=== PATIENT | female | born 1950 | race Caucasian/White ===

== ENCOUNTER → 2021-02-09 | Outpatient (CLI) | payer MEDICARE | END | disposition home or self-care (01) | LOC: OIH 14:09 | PROVIDERS: ATTEND Internal Medicine | DX: I08.3 Combined rheumatic disorders of mitral, aortic and tricuspid valves (principal); E78.5 Hyperlipidemia, unspecified; E11.9 Type 2 diabetes mellitus without complications | CPT/HCPCS: 93306; 93356 ==

== ENCOUNTER 2024-03-01 10:12 | Inpatient (IN) | payer MEDICARE ==
[~2024-03-01] VITALS: Ht 175.3 cm; Wt 70.9 kg
--- NOTE | 2024-03-01 10:41 | NUR ---
PT PLACED IN ED ROOM 02 WITH 02 @ 2 LTS
--- NOTE | 2024-03-01 11:14 | ERN ---
ED Note History of Present Illness Stated Complaint: FLU LIKE SYMPTOMS Chief Complaint: Shortness of Breath Time Seen by MD: 11:00 Dictation: This 73-year-old patient with a history of hypertension, hyperlipidemia and diabetes presents in the emergency department with several days of body aches and cough, worsening shortness of breath, diarrhea and a chest pain exacerbated by deep breath and cough which is constant and substernal. She is not producing a lot of sputum. She visited her PCP Dr. srini Lee on Monday who prescribed a Z-Rafael inhaler and prednisone which seemed to make her feel better. In a more subacute timeframe she has been experiencing about 22 days of severe nocturnal heartburn and did see the PCP who gave her a course of easy omeprazole which did not relieve her symptoms. She switch to Tums and did get relief of the symptoms and once those symptoms were gone she began experiencing the cough. Yesterday she noted some ankle edema which improved with a elevation overnight. Her chest pain today is sharp in nature and exacerbated by deep breath and cough. It is nonradiating. She is not known to have any history of heart disease and has never been a smoker. She lives at home with family Allergies: Coded Allergies: No Known Drug Intolerances (Unverified Allergy, Intermediate, 03/01/24) Past Medical History Past Medical History: Diabetes-Type I, High Cholesterol, Hypertension, Renal Disese Surgical History: Other Surgical History Other: LEFT SHOULDER, RIGHT TOE AMPUATIONS Social History: Negative RN Note Reviewed/Agreed w/PFSH: Yes Review of System Dictation All pertinent systems reviewed, negative except as documented in the HPI The ROS is obtained from patient GENERAL/CONSTITUTIONAL: Negative except as documented in HPI. ENT: Negative except as documented in HPI. CARDIOVASCULAR: Negative except as documented in HPI. RESPIRATORY: Negative except as documented in HPI. GASTROINTESTINAL: Negative except as documented in HPI. GENITOURINARY: Negative except as documented in HPI. MUSCULOSKELETAL: Negative except as documented in HPI. SKIN: Negative except as documented in HPI. NEUROLOGIC: Negative except as documented in HPI. Initial Vital Sign VS Vital Signs Date Time Temp Pulse Resp B/P (MAP) Pulse Ox O2 Delivery O2 Flow Rate FiO2 03/01/24 10:41 98.6 82 20 105/50 90 Room Air 0 03/01/24 11:20 28 Physical Exam Dictation VITAL SIGNS: note is made of triage vital signs CONSTITUTIONAL: This is an uncomfortable, ill-appearing patient who is awake, alert, and appropriately interactive. HEAD: Normocephalic, Atraumatic. EYES: Periorbital areas with no swelling, redness, or edema. Lids and lashes are normal. Conjunctival injection is absent. Sclera anicteric. Pupils equal, round, reactive to light. ENT: No nasal discharge noted. Posterior pharynx is without exudate, redness, swelling, masses, or evidence of obstruction. Uvula midline. Mucous membranes moist. NECK: Trachea midline, no masses palpated, and no cervical lymphadenopathy. No swelling. Supple, full range of motion without nuchal rigidity. No vertebral point tenderness. No meningismus. CHEST/AXILLA: Normal chest wall appearance and motion. No tenderness. No crepitus. CV: Normal rate, regular rhythm. No murmur. No edema. RESPIRATORY: Mild tachypnea is noted. Patient has decreased airflow and crack les heard at both bases as well as wheezing worse on the left than the right. Mild increased work of breathing ABDOMEN: Inspection normal. No distention is appreciated. Bowel sounds are normal. No mass or organomegaly is appreciated. There is no tenderness. No rebound. No rigidity. No voluntary or involuntary guarding. BACK: Inspection is normal. No midline tenderness is appreciated. The patient appears comfortable when moving. : No CVA tenderness or bladder tenderness. SKIN: Warm, dry, with normal turgor. Capillary refill less than 3 seconds. Normal color.No rash. No cellulitis or abscess. No evidence of acute injury. Stasis changes of the lower extremities MS/Extremity: There is no calf tenderness. Baseline range of motion is noted in all 4 extremities. There are no deformities. NEURO: Awake and alert, lucid. Facies symmetric and speech is clear. Motor strength 5/5 in all extremities. Sensory grossly intact. PSYCH: Patient is appropriately attentive and cooperative without evidence of hallucination. Results (Laboratory/Radiology) Laboratory/Radiology Laboratory Tests Test 03/01/24 09:52 03/01/24 10:48 03/01/24 11:49 White Blood Count 8.2 K/uL (4.8-10.8) Red Blood Count 3.43 MIL/uL (4.00-5.50) L Hemoglobin 10.4 g/dL (12.0-16.0) L Hematocrit 32.6 % (36-48) L Mean Corpuscular Volume 95.0 fL (79-99) Mean Corpuscular Hemoglobin 30.3 pg (27.0-33.0) Mean Corpuscular Hemoglobin Concent 31.9 g/dL (32.0-36.0) L Red Cell Distribution Width 14.8 % (11.0-15.5) Platelet Count 212 K/uL (130-400) Mean Platelet Volume 12.1 fL (7.5-10.5) H Immature Granulocyte % (Auto) 0.4 % (0-1) Neutrophils (%) (Auto) 82.1 % (40.0-77.0) H Lymphocytes (%) (Auto) 9.5 % (21.0-51.0) L Monocytes (%) (Auto) 7.6 % (3.0-13.0) Eosinophils (%) (Auto) 0.2 % (0.0-8.0) Basophils (%) (Auto) 0.2 % (0.0-5.0) Neutrophils # (Auto) 6.7 K/uL (1.8-7.7) Lymphocytes # (Auto) 0.8 K/uL (1.0-4.8) L Monocytes # (Auto) 0.6 K/uL (0.1-1.0) Eosinophils # (Auto) 0.02 K/uL (0.00-0.70) Basophils # (Auto) 0.02 K/uL (0.00-0.20) Absolute Immature Granulocyte (auto 0.03 K/uL (0-1) Nucleated Red Blood Cells 0.0 % (0.0-0.19) White Cell Morphology Comment See comments Sodium Level 139 mmol/L (136-145) Potassium Level 5.1 mmol/L (3.5-5.1) Chloride Level 105 mmol/L (101-111) Carbon Dioxide Level 22 mmol/L (21-32) Blood Urea Nitrogen 54 mg/dL (7-18) H Creatinine 2.1 mg/dL (0.5-1.0) H Glomerular Filtration Rate Calc 24 mL/min (>90) Random Glucose 270 mg/dL (70-105) H Lactic Acid Level 2.2 mmol/L (0.8-2.5) Total Calcium 8.0 mg/dL (8.5-10.1) L Magnesium Level 3.60 mg/dL (1.80-2.40) H Total Bilirubin 0.3 mg/dL (0.2-1.0) Direct Bilirubin 0.1 mg/dL (0.0-0.3) Aspartate Amino Transf (AST/SGOT) 282 U/L (10-37) H Alanine Aminotransferase (ALT/SGPT) 430 U/L (12-78) H Alkaline Phosphatase 127 U/L (50-136) Total Creatine Kinase 142 U/L (21-232) B-Type Natriuretic Peptide 2430 pg/mL (0-100) H Total Protein 6.7 g/dL (6.0-8.3) Albumin 3.0 g/dL (3.5-5.0) L Thyroid Stimulating Hormone (TSH) 1.26 uIU/mL (0.36-3.74) Influenza Type A Antigen Negative For Type A Influenza Type B Antigen Negative For Type B SARS-CoV-2 Antigen (Rapid) PRESUMPTIVE NEGATIVE Procalcitonin 0.14 ng/mL (0.05-0.5) EKG Comment: Time reviewed: 11:00 a.m. EKG number; 1 Rate and rhythm: Sinus rhythm at 80 [place]:normal Morphology: Possible old anterior wall myocardial infarction AR interval: normal QT interval: normal ST/Twaves: normal Impression: normal sinus rhythm without STEMI or ectopy Comparison EKG: none EKG INTERPRETATION by Dr. Tea Mancera ED Course ED Course Orders Procedure Category Date Status Time Vital Signs Per CPOE 03/01/24 Transmitted Routine 10:44 B-Type Natriuretic LAB 03/01/24 Complete Peptide 10:44 Chest 1vw RAD 03/01/24 Resulted 10:44 12 Lead Ekg Tracing- EKG 03/01/24 Complete Technical 10:44 Oxygen By Nc/Pulse Ox CPOE 03/01/24 Transmitted 10:44 Maintain Iv CPOE 03/01/24 Transmitted 10:44 Iv Insertion CPOE 03/01/24 Transmitted 10:44 Cardiac Monitoring CPOE 03/01/24 Transmitted 10:44 Pulse Oximetry With CPOE 03/01/24 Transmitted Vs And Prn 10:44 Cbc With Differential LAB 03/01/24 Complete 10:44 Activity: Br W/Brp CPOE 03/01/24 Transmitted With Assist 10:44 Urinalysis Profile LAB 03/01/24 Logged 10:44 Troponin Poc Order LAB 03/01/24 Complete Only 10:44 Bedside Troponin-I LAB.ER 03/01/24 In Process (Poc) 10:44 Influenza Type A & B, LAB 03/01/24 Complete Rapid 10:44 Covid19 (Sars Antigen LAB 03/01/24 Complete Rapid) 10:44 Blood Cult MADALYN 03/01/24 In Process 11:36 Lactic Acid LAB 03/01/24 Complete 11:36 Magnesium LAB 03/01/24 Complete 11:36 Hepatic Function Panel LAB 03/01/24 Complete 11:36 Ipratropium/Albuterol PHA 03/01/24 Complete Neb (Duoneb) 12:00 Methylprednisolone PHA 03/01/24 Complete Succ 125mg (Solu-Medr 12:00 Ceftriaxone 2gm Vial PHA 03/01/24 Complete (Rocephin 2gm Inj) 12:00 0.9%Nacl 1000ml (Ns PHA 03/01/24 In Process 1000ml) 12:00 Basic Metabolic Panel LAB 03/01/24 Complete 11:36 Creatine Kinase, Total LAB 03/01/24 Complete 11:36 Vital Signs(Adult CPOE 03/01/24 Transmitted Hospitalist) 12:24 Oxygen By Nc/Pulse Ox CPOE 03/01/24 Transmitted 12:24 Famotidine 20mg Tab PHA 03/01/24 In Process (Pepcid 20mg Tab) 21:00 Diphenhydramine Hcl PHA 03/01/24 In Process (Benadryl Cap) 12:30 Diphenhydramine Hcl PHA 03/01/24 In Process (Benadryl Inj) 12:30 Acetaminophen 325 Tab PHA 03/01/24 In Process (Tylenol 325mg Tab 12:30 Acetaminophen 325 Tab PHA 03/01/24 In Process (Tylenol 325mg Tab 12:30 Ondansetron 4mg Inj PHA 03/01/24 In Process (Zofran 4mg Inj) 12:30 Mag/Alum/Simeth 30ml PHA 03/01/24 In Process (Maalox Plus 30ml) 12:30 Lactulose 20 Gm/30 Ml PHA 03/01/24 In Process Udcup (Constulose 12:30 Nitroglycerin 0.4mg PHA 03/01/24 In Process Sl Tab (Nitrostat) 12:30 Guaifenesin-Dm PHA 03/01/24 In Process 200/20mg 10ml 12:30 Ipratropium/Albuterol PHA 03/01/24 In Process Neb (Duoneb) 14:00 Pulse Ox(Continuous) RT 03/01/24 Transmitted 12:24 Famotidine 20mg Vial PHA 03/01/24 Complete (Pepcid 20mg Vial) 21:00 Procalcitonin LAB 03/01/24 Complete 12:24 Guaifenesin Sug-Vitaliy PHA 03/01/24 In Process 100 Mg/5ml (Robituss 12:30 Docusate Sodium 100 PHA 03/01/24 In Process Mg Cap (Colace 100mg 12:30 Polyethylene Glycol PHA 03/01/24 In Process 3350 (Miralax 3350 1 12:30 Lidocaine Hcl 2% PHA 03/01/24 In Process Viscous (Lidocaine Hcl 12:30 Natural Tears 15ml PHA 03/01/24 In Process (Artificial Tears) 12:30 Benzocaine/Menth/Cetylpyrd PHA 03/01/24 In Process Cl (Cepacol S 12:30 Admit Orders ADM 03/01/24 Transmitted 12:24 Telemetry Monitoring CPOE 03/01/24 Transmitted 12:24 Activity: Ad Marianna CPOE 03/01/24 Transmitted 12:24 Heart Healthy Diet DIET 03/01/24 Transmitted Lunch Urinalysis Profile LAB 03/01/24 Logged 12:24 Erythrocyte LAB 03/01/24 In Process Sedimentation Rate 12:24 RSV LAB 03/01/24 Logged 12:24 Respiratory Cult MADALYN 03/01/24 Logged W/Gram Stain 12:24 Echo 2-D Complete ECHO 03/01/24 Logged 12:24 Initiate YUSUF 03/01/24 In Process Hyperglycemia Protoco 12:24 Insulin Lispro 100 PHA 03/01/24 In Process Unit/Ml 3ml (Humalog 16:30 Ct Chest W/O Contrast CT 03/01/24 Resulted 12:31 D-Dimer LAB 03/01/24 In Process 12:31 Methylprednisolone PHA 03/01/24 In Process Succ 40mg (Solu-Medro 13:00 Azithromycin 500mg+Ns PHA 03/01/24 In Process 250ml (Azithromyci 13:00 Arterial Blood Gas RT 03/01/24 Transmitted 12:31 Furosemide 40mg Vial PHA 03/01/24 In Process (Lasix 40mg Vial) 13:00 Ceftriaxone 1g Vial PHA 03/02/24 In Process (Rocephine 1g Inj) 13:00 Thyroid Stimulating LAB 03/01/24 Complete Hormone 09:52 Current Medications Medications (Trade) Dose Ordered Sig/Arely Route PRN Reason Start Time Stop Time Status Last Admin Dose Admin Albuterol (DUOneb) 1 udvial ONCE ONCE IH 03/01/24 12:00 03/01/24 12:01 DC 03/01/24 12:57 Ceftriaxone Sodium (Rocephin 2gm Inj) 2 gm ONCE ONCE IVPB 03/01/24 12:00 03/01/24 12:01 DC 03/01/24 11:51 Methylprednisolone Sodium Succinate (Solu-medROL 125MG) 125 mg ONCE ONCE IVP 03/01/24 12:00 03/01/24 12:01 DC 03/01/24 11:51 Sodium Chloride 1,000 ml @ 125 mls/hr ONCE ONCE IV 03/01/24 12:00 03/01/24 19:59 03/01/24 11:51 Vital Signs Date Time Temp Pulse Resp B/P (MAP) Pulse Ox O2 Delivery O2 Flow Rate FiO2 03/01/24 12:58 74 20 03/01/24 12:33 98.2 74 16 146/84 98 Room Air* 0 21 03/01/24 11:20 98.1 78 15 138/61 90 Nasal Cannula* 2 28 03/01/24 10:41 98.6 82 20 105/50 90 Room Air 0 Medical Decision Making MDM INITIAL IMPRESSION Initial history and physical concerning for pneumonia, viral syndrome, heart failure, Contributing medical problems: No report of underlying cardiac or pulmonary disease I have reviewed the triage nursing notes and vital signs. The patient is afebrile but has a low O2 sat at triage with minimal improvement on oxygen Initial plan: Screening for cardiopulmonary etiology of dyspnea including infectious etiology DATA REVIEW I have reviewed additional NN, repeat VS, and monitoring where indicated. The patient continues to sat around 93% on 2-1/2 L of oxygen. [place] diagnostic results: White count is 8.2, there was mild anemia. BUN is 54 and creatinine is 2.1. There was low calcium, high magnesium and elevated t ransaminase. The patient's BNP is very elevated. Lactic acid is mildly elevated at 2.2 Other independent historian: none Review of external data: There is no old renal function under this medical record number. A previous cardiac echo showed normal LV function in 2020 ED COURSE Interventions: The patient received oxygen, DuoNeb and was started on antibiotics. After the chest x-ray and BNP were reviewed patient was admitted and Lasix was started. Reassessment: The patient is hemodynamically stable DISPOSITION Final diagnostic impression: Pneumonia possibly precipitating new onset heart failure versus primary heart failure complicated by pneumonia I discussed my findings, clinical impression and treatment recommendations with the patient. I have reviewed the social factors contributing to the patient's presentation and disposition planning. My final plan for disposition was made based upon clinical findings, response to treatment and discussion with the patient regarding management options. At noon I discussed the case with the nurse practitioner on duty for [facility] services to arrange admission. Hospitalization is indicated due to current hypoxemia and significant risk of short term progression, complication, morbidity or mortality related to the current diagnosis The patient will be admitted for further management of hypoxemic respiratory failure with evidence of heart failure rule out pneumonia The family/patient has been advised regarding the reason for admission Questions were invited and answered in layman's terms. This dictation was prepared using medical voice recognition software. Occasional voice recognition errors may occur. When identified, these errors have been corrected. While every attempt is made to correct errors during dictation, errors may still exist. DX & DISP Disposition: Inpatient Decision to Admit Date: Mar 01, 2024 Departure Impression: Primary Impression: New onset of congestive heart failure Additional Impressions: Suspected pneumonia, Hypocalcemia, Renal insufficiency Condition: Stable Referrals: CHYEENNE LEE MD (PCP) TEA MANCERA MD Mar 01, 2024 11:14
--- NOTE | 2024-03-01 11:20 | NUR ---
PATIENT BEDDED TO ROOM 17
[2024-03-01 11:28] LABS: COVID19 (SARS ANTIGEN RAPID) PRESUMPTIVE NEGATIVE (NEGATIVE); INFLUENZA TYPE A Negative For Type A (NEGATIVE); INFLUENZA TYPE B Negative For Type B (NEGATIVE)
[2024-03-01] MEDS: Solu-medROL 125MG VIAL IVP ONE (11:51)
[2024-03-01] MEDS: CEFTRIAXONE 2GM VIAL IVPB ONE (11:51)
[2024-03-01] MEDS: 0.9%NACL 1000ML 1,000 ML IV ONE (11:51)
[2024-03-01 11:53] LABS: BASOPHILS # (AUTO) 0.02 K/uL (0.00-0.20); BASOPHILS % (AUTO) 0.2 % (0.0-5.0); EOSINOPHILS # (AUTO) 0.02 K/uL (0.00-0.70); EOSINOPHILS % (AUTO) 0.2 % (0.0-8.0); HEMATOCRIT 32.6 % (36-48); IMMATURE GRANULOCYTE ABSOLUTE 0.03 K/uL (0-1); LYMPHOCYTES # (AUTO) 0.8 K/uL (1.0-4.8); LYMPHOCYTES % (AUTO) 9.5 % (21.0-51.0); MEAN CORPUSCULAR HEMOGLOBIN 30.3 pg (27.0-33.0); MEAN CORPUSCULAR HGB CONC 31.9 g/dL (32.0-36.0); MONOCYTES # (AUTO) 0.6 K/uL (0.1-1.0); MONOCYTES % (AUTO) 7.6 % (3.0-13.0); NEUTROPHILS # (AUTO) 6.7 K/uL (1.8-7.7); NEUTROPHILS % (AUTO) 82.1 % (40.0-77.0); PLATELET COUNT (AUTO) 212 K/uL (130-400); RED BLOOD CELL COUNT(AUTO) 3.43 MIL/uL (4.00-5.50); RED CELL DISTRIBUTION WIDTH 14.8 % (11.0-15.5); WHITE BLOOD COUNT (AUTO) 8.2 K/uL (4.8-10.8)
--- NOTE | 2024-03-01 11:59 | HMCIMG ---
Exam Type: CHEST 1VW Clinical Information: CHEST PAIN Comparison: None Findings: There is prominence of the pulmonary vascular markings consistent with pulmonary venous congestion. . There is central bilateral perihilar edema consistent with congestive heart failure. The heart is enlarged in size. The bony and soft tissue structures of the chest are unremarkable. Impression: Congestive heart failure with perihilar edema as noted.
--- NOTE | 2024-03-01 12:00 | EKG ---
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
[2024-03-01 12:28] LABS: B-TYPE NATRIURETIC PEPTIDE 2430 pg/mL (0-100)
[2024-03-01] MEDS ORDERED: LIDOCAINE HCL 2% VISCOUS 30 ML, MAG/ALUM/SIMETH 30ML 30 ML, DICYCLOMINE HCL 20 MG PO PRN (12:30)
[2024-03-01] MEDS ORDERED: DiphenhydrAMINE HCL 50 MG/ML VIAL IV PRN (12:30)
[2024-03-01] MEDS ORDERED: DiphenhydrAMINE HCL 25 MG CAPSULE PO PRN (12:30)
[2024-03-01] MEDS ORDERED: ARTIFICAL TEARS SOL 15 ML OP PRN (12:30)
[2024-03-01] MEDS ORDERED: guaiFENesin-DM 200/20MG 10ML PO PRN (12:30)
[2024-03-01] MEDS ORDERED: doCUSate SODIUM 100 MG CAP PO PRN (12:30)
[2024-03-01] MEDS ORDERED: NITROGLYCERIN 0.4 MG SL TAB SL PRN (12:30)
[2024-03-01] MEDS ORDERED: MAG/ALUM/SIMETH 30 ML UDCUP PO PRN (12:30)
[2024-03-01] MEDS: IpraTROPium/alBUTERol SULFATE 3 ML SOLUTION IH ONE (12:57)
[2024-03-01 12:58] VITALS: PULSE 74; RESP 20
[2024-03-01] MEDS: Solu-medROL 40MG VIAL IVP SCH (13:00)
--- NOTE | 2024-03-01 13:13 | HMCIMG ---
CT NONCONTRAST CHEST Comparison Study: none History: pneumonia Technique: Helical CT of the chest without IV contrast at 5 mm collimation. Coronal and sagittal reformations also done. CT Dose Index (CTDI): 2.38 mGy Dose Length Product (DLP): 94.8 total mGy-cm Findings: The airway is intact. The trachea and major bronchi are unremarkable. There are bilateral moderate pleural effusions with airspace disease of the lower lobes consistent with bilateral basal pneumonia, superimposed upon pulmonary congestive vascular changes. Follow-up is advised. There is no pneumothorax. There is no evidence of pneumomediastinum. The nonenhanced exam of the arturo and mediastinum is unremarkable. No evidence of hilar enlargement is seen. The aorta shows no aneurysmal dilatation or significant atheromatous calcification. No significant brachiocephalic vascular abnormalities are seen. The heart is unremarkable. It is not enlarged. No significant coronary arterial calcifications are seen. There is no pericardial effusion. The rib cage appears unremarkable. The soft tissues of the chest wall are unremarkable. The dorsal spine shows no significant abnormalities. IMPRESSION: There are bilateral moderate pleural effusions with airspace disease of the lower lobes consistent with bilateral basal pneumonia, superimposed upon pulmonary congestive vascular changes. Follow-up is advised. This study was performed using dose reduction techniques to include automated exposure control and/or adjustment of the mA and/or kV according to patient size.
[2024-03-01 13:27] LABS: BILIRUBIN,DIRECT 0.1 mg/dL (0.0-0.3); BILIRUBIN,TOTAL 0.3 mg/dL (0.2-1.0); CREATININE 2.1 mg/dL (0.5-1.0); MAGNESIUM 3.6 mg/dL (1.80-2.40); POTASSIUM 5.1 mmol/L (3.5-5.1); THYROID STIMULATING HORMONE 1.26 uIU/mL (0.36-3.74); TOTAL PROTEIN, SERUM 6.7 g/dL (6.0-8.3)
[2024-03-01 14:10] VITALS: PULSE 74; RESP 20
[2024-03-01 14:22] LABS: ABG BASE EXCESS -6.3 mmol/L (-2.0-3.0); ABG HCO3 17.4 mmol/L (21.0-28.0); ABG OXYGEN SATURATION 90.6 % (94.0-98.0); ABG PCO2 30 mmHg (32-45); ABG PH 7.378 (7.350-7.450); DEVICE COMMENT JESSE RN LR; PO2, ARTERIAL BG 59.2 mmHg (83.0-108.0); VENT MODE, BG 2L NC (ROOM AIR)
[2024-03-01] MEDS: AZITHROMYCIN 500MG+NS 250ML 250 ML IVPB SCH (14:27)
[2024-03-01] MEDS: furoSEMIDE 40MG VIAL IV SCH (14:27)
[2024-03-01] MEDS: IpraTROPium/alBUTERol SULFATE 3 ML SOLUTION IH SCH (14:36)
[2024-03-01] MEDS: INSULIN LISpro 100 UNIT/ML 3ML SQ SCH (16:30)
[2024-03-01 17:04] LABS: ADD UA MICROSCOPIC YES; APPEARANCE,URINE CLEAR (CLEAR); BILIRUBIN,URINE NEGATIVE (NEGATIVE); COLOR,URINE COLORLESS (YELLOW); GLUCOSE, URINE (UA) >=1000 mg/dL (NEGATIVE); KETONES,URINE NEGATIVE (NEGATIVE); LEUKOCYTE ESTERASE ,URINE NEGATIVE Leu/uL (NEGATIVE); NITRATE,URINE NEGATIVE (NEGATIVE); OCCULT BLOOD,URINE NEGATIVE (NEGATIVE); PROTEIN,URINE NEGATIVE (NEGATIVE); UROBILINOGEN,URINE 0.2 mg/dL (0.2-1.0)
[2024-03-01 17:06] LABS: MUCUS,URINE RARE LPF (None Seen); RBC,URINE 0-1 /HPF (0-1); SQUAMOUS EPITHELIAL CELL,UR RARE /HPF (0-2); WBC,URINE 0-1 /HPF (0-1)
[2024-03-01 19:14] VITALS: PULSE 83; RESP 19
[2024-03-01] MEDS: SODIUM CHLORIDE 3% FOR INHALATION 4 ML/AMP VIAL.NEB IH ONE ×2 (19:14→23:43)
[2024-03-01 19:17] VITALS: PULSE 83; RESP 19; O2SAT 94
[2024-03-01] MEDS: FAMOTIDINE 20MG TAB PO SCH (20:46)
[2024-03-01] MEDS ORDERED: FAMOTIDINE 20MG VIAL IV SCH (21:00)
--- NOTE | 2024-03-01 21:00 | NUR ---
BLOOD SUGAR 302 PT REFUSED INSULIN SCHEDULED DOSE TOOK HER OWN FROM HOME 5.1 UNIT OF INS REGULAR WILL CONT TO MONITOR
[2024-03-01 23:43] VITALS: PULSE 78; RESP 19
[2024-03-02] VITALS (22 sets, daily range): BP systolic 122–152; BP diastolic 56–96; PULSE 76–89; RESP 14–21; TEMP 97.9–99; O2SAT 93–98
--- NOTE | 2024-03-02 00:09 | HP ---
[facility] HISTORY & PHYSICAL Date Patient Seen: Mar 02, 2024 Time of Visit: 00:09 Supervising Physician: Dr. Nick Walton Primary Care Physician: Outpatient Specialists: [facility] last seen in 2021 Inpatient Consults: [facility] PROBLEM LIST: Acute hypoxemic respiratory failure, POA New onset congestive heart failure, POA Community acquired pneumonia, POA Hypocalcemia, POA Hypomagnesemia Renal insufficiency, POA GFR 24 (no prior GFR available to compare baseline) Anemia of chronic disease Hypoalbuminemia Elevated D-dimer, PE was ruled out via CTA chest Chronic problem list: Hypertension, hyperlipidemia, diabetes mellitus type 2 HPI: Ms. Pretty is a 73-year-old female with a history of hypertension, hyperlipidemia and diabetes who presented to the emergency department with roberto ral days of body aches and cough, worsening shortness of breath, diarrhea and a chest pain exacerbated by deep breath and cough which is constant and substernal. She is not producing a lot of sputum. She visited her PCP Dr. srini Quick on Monday who prescribed a Z-Pa,k inhaler and prednisone which seemed to make her feel better. She also reported experiencing about 22 days of severe nocturnal heartburn and did see the PCP who gave her a course of easy omeprazole which did not relieve her symptoms. She switch to Tums and did get relief of the symptoms and once those symptoms were gone she began experiencing the cough. Yesterday she noted some ankle edema which improved with a elevation overnight. Her chest pain today was reported to be sharp in nature and exacerbated by deep breath and cough, nonradiating. She has never been a smoker. Patient reports that in 2021 her PCP thought he heard a murmur and sent her to [facility]. She reports that [facility] reported everything was fine and has not gone to see a central melt specialist since 2021. In ED the patient's saturations were around 93% on 2-1/2 L of oxygen. White count is 8.2, there was mild anemia. BUN is 54 and creatinine is 2.1. GFR 24. There was low calcium, high magnesium and elevated transaminase. The patient's BNP is 2430. Lactic acid is mildly elevated at 2.2. A previous cardiac echo showed normal LV function in 2020 In ED the patient received oxygen, DuoNeb and was started on antibiotics. After the chest x-ray and BNP were reviewed patient was admitted and Lasix was started. ED physician requested patient be admitted with the diagnosis of new onset of congestive heart failure, suspected pneumonia, hypocalcemia, and renal insufficiency. Patient was admitted under BI team. I went to assess the patient at bedside. Patient breathing was even, unlabored, on 2.5 L of oxygen. I spent extensive time explaining to patient's labs, diagnostics, and plan of care. The patient had multiple questions which were addressed by me. Education done on fluid overload, pleural effusions, and pn eumonia was done by me. The patient verbalized understanding and is in agreement with the plan. Plan and assessment are listed below. PAST MEDICAL HX: see above PAST SURGICAL HX: Left shoulder surgery Right toe amputation SOCIAL HISTORY: No tobacco, ETOH, or illicit drug use Coded Allergies: No Known Drug Intolerances (Unverified Allergy, Intermediate, 03/01/24) REVIEW OF SYSTEMS: 12 point ROS reviewed with patient. Pertinent positives mentioned above. Otherwise negative. PHYSICAL EXAM: GENERAL: Alert, awake oriented x 3 HEENT: EOMI, Sclera non icteric, moist mucosa NECK: Supple, no JVD, trachea midline LUNGS: Breathing was even and unlabored. Upper lobes crackles, lower lobes diminished bilaterally. No wheezes. HEART: Regular rate and rhythm. Normal S1 and S2, without murmurs ABD: Abdomen soft, nontender. Bowel sounds present EXT: No clubbing cyanosis or +1 edema NEURO: Alert and oriented x3, follows commands, no neuro deficits noted. Vital Signs (last 8hr) Date Time Temp Pulse Resp B/P (MAP) Pulse Ox O2 Delivery O2 Flow Rate FiO2 03/01/24 23:43 78 19 03/01/24 19:42 99.0 87 20 145/72 95 Nasal Cannula* 2 28 03/01/24 19:17 83 19 N/Cannula Low lpm 2.0 28 03/01/24 19:14 83 19 03/01/24 19:06 98.1 80 20 139/34 90 Nasal Cannula* 2 28 03/01/24 17:24 98.1 91 20 145/60 90 Nasal Cannula* 2 28 LABS: Hematology Labs: Test 03/01/24 11:49 03/01/24 09:52 Range/Units Erythrocyte Sedimentation Rate 34 H 0-30 MM/HR White Blood Count 8.2 4.8-10.8 K/uL Red Blood Count 3.43 L 4.00-5.50 MIL/uL Hemoglobin 10.4 L 12.0-16.0 g/dL Hematocrit 32.6 L 36-48 % Mean Corpuscular Volume 95.0 79-99 fL Mean Corpuscular Hemoglobin 30.3 27.0-33.0 pg Mean Corpuscular Hemoglobin Concent 31.9 L 32.0-36.0 g/dL Red Cell Distribution Width 14.8 11.0-15.5 % Platelet Count 212 130-400 K/uL Mean Platelet Volume 12.1 H 7.5-10.5 fL Immature Granulocyte % (Auto) 0.4 0-1 % Neutrophils (%) (Auto) 82.1 H 40.0-77.0 % Lymphocytes (%) (Auto) 9.5 L 21.0-51.0 % Monocytes (%) (Auto) 7.6 3.0-13.0 % Eosinophils (%) (Auto) 0.2 0.0-8.0 % Basophils (%) (Auto) 0.2 0.0-5.0 % Neutrophils # (Auto) 6.7 1.8-7.7 K/uL Lymphocytes # (Auto) 0.8 L 1.0-4.8 K/uL Monocytes # (Auto) 0.6 0.1-1.0 K/uL Eosinophils # (Auto) 0.02 0.00-0.70 K/uL Basophils # (Auto) 0.02 0.00-0.20 K/uL Absolute Immature Granulocyte (auto 0.03 0-1 K/uL Nucleated Red Blood Cells 0.0 0.0-0.19 % White Cell Morphology Comment See comments Chemistry Labs: Test 03/01/24 16:34 03/01/24 11:49 03/01/24 09:52 Range/Units Lactic Acid Level 1.8 0.8-2.5 mmol/L Procalcitonin 0.14 0.05-0.5 ng/mL Sodium Level 139 136-145 mmol/L Potassium Level 5.1 3.5-5.1 mmol/L Chloride Level 105 101-111 mmol/L Carbon Dioxide Level 22 21-32 mmol/L Blood Urea Nitrogen 54 H 7-18 mg/dL Creatinine 2.1 H 0.5-1.0 mg/dL Glomerular Filtration Rate Calc 24 >90 mL/min Random Glucose 270 H 70-105 mg/dL Total Calcium 8.0 L 8.5-10.1 mg/dL Magnesium Level 3.60 H 1.80-2.40 mg/dL Total Bilirubin 0.3 0.2-1.0 mg/dL Direct Bilirubin 0.1 0.0-0.3 mg/dL Aspartate Amino Transf (AST/SGOT) 282 H 10-37 U/L Alanine Aminotransferase (ALT/SGPT) 430 H 12-78 U/L Alkaline Phosphatase 127 50-136 U/L Total Creatine Kinase 142 21-232 U/L B-Type Natriuretic Peptide 2430 H 0-100 pg/mL Total Protein 6.7 6.0-8.3 g/dL Albumin 3.0 L 3.5-5.0 g/dL Thyroid Stimulating Hormone (TSH) 1.26 0.36-3.74 uIU/mL Coagulation Labs: Test 03/01/24 11:49 Range/Units D-Dimer Quantitative (PE/DVT) 1650 *H 0-500 ng/mL DIAGNOSTICS / RADIOLOGY RESULTS: [ ] PLAN Admit to medical floor with telemetry monitoring. Monitor respiratory status closely. Continue oxygen therapy, titrate to keep SpO2 equal to greater than 92%. Continue nebulizer treatments. RT to provide IS and education on use. Robitussin DM as needed for cough. Continue Solu-Medrol. Continue antibiotic therapy: Rocephin IV and Zithromax IV. Consult Cardiology in a.m. Trend troponins and EKGs. Fluid restriction a 1200 mL. Strict I&Os. Daily weights. Echo in a.m. heart clinic to read. [id number] mg p.o. daily. Atorvastatin 40 mg p.o. daily. Lasix 40 mg IV b.i.d. P.r.n. medications for: Pain, nausea, vomiting, constipation, hypertension Blood pressure checks every 4 hours and as needed. Reconcile home medications once available. Monitor renal and liver function. Monitor electrolytes and treat accordingly. A.m. labs: CBC, BNP, Mag, phos, TSH, A1c, troponin, GI and DVT prophylaxis. NEURO: Minimize central acting medications as possible. Maintain fall precautions, adequate lighting during the day PULMONARY: Supplemental 02 as needed. Maintain aspiration precautions at all times CARDIOVASCULAR: Follow hemodynamics. Vital signs per facility protocol GI & NUTRITION: Continue with nutritional support. Continue stool softeners and laxatives as needed. KIDNEYS & ELECTROLYTES: Strict monitoring of intake, output and overall fluid balance. Avoid nephrotoxic medications to the extent possible. Medications to be dosed according to renal function. Monitor electrolytes and replace as needed ENDOCRINE: Maintain blood glucose between 100-180 at all times. Hypoglycemia protocol in place INFECTIOUS DISEASE: Trend temperature, WBC and procalcitonin level Follow cultures, deescalate antibiotics as soon as possible. Panculture if new onset fever ONCOLOGY/HEMATOLOGY/COAGULATION: Monitor for s/s of bleeding Monitor hemoglobin, coagulation studies as needed SKIN: Pressure ulcer prevention per facility protocol Specialty mattress ORTHO/REHAB: Continue PT/OT Prophylaxis: Continue GI and DVT prophylaxis Code Status: Full Resuscitation Disposition: ISAIAS PRINCE Mar 02, 2024 00:09
[2024-03-02] MEDS: SODIUM CHLORIDE 3% FOR INHALATION 4 ML/AMP VIAL.NEB IH ONE (02:13)
[2024-03-02 07:36] LABS: HEMOGLOBIN A1C 8.1 % (4.0-6.0)
[2024-03-02 07:51] LABS: HEMATOCRIT 32.8 % (36-48); MEAN CORPUSCULAR HEMOGLOBIN 30.4 pg (27.0-33.0); MEAN CORPUSCULAR HGB CONC 33.2 g/dL (32.0-36.0); MEAN CORPUSCULAR VOLUME 91.4 fL (79-99); RED BLOOD CELL COUNT(AUTO) 3.59 MIL/uL (4.00-5.50); RED CELL DISTRIBUTION WIDTH 14.7 % (11.0-15.5); WHITE BLOOD COUNT (AUTO) 10.4 K/uL (4.8-10.8)
[2024-03-02 07:54] LABS: BILIRUBIN,TOTAL 0.2 mg/dL (0.2-1.0)
[2024-03-02 07:55] LABS: CREATININE 2.2 mg/dL (0.5-1.0); MAGNESIUM 3.4 mg/dL (1.80-2.40); PHOSPHORUS 5.7 mg/dL (2.5-4.9); POTASSIUM 4.8 mmol/L (3.5-5.1); TOTAL PROTEIN, SERUM 6.6 g/dL (6.0-8.3)
--- NOTE | 2024-03-02 08:01 | NUR ---
BLOOD SUGAR 187 PATIENT REFUSED INSULIN. 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 CURRENTLY RUNNING AT 1.7.
[2024-03-02] MEDS ORDERED: ASPI-1197 PO (08:23)
[2024-03-02] MEDS ORDERED: CARV12.511 PO (08:23)
[2024-03-02] MEDS ORDERED: INSU100I15 SQ (08:23)
[2024-03-02] MEDS ORDERED: MULT-1250 PO (08:23)
[2024-03-02] MEDS ORDERED: CHOL200074 PO (08:23)
[2024-03-02] MEDS ORDERED: VITA-395 PO (08:23)
[2024-03-02] MEDS ORDERED: [UNRECOGNIZED DRUG - OTHER] PO (08:23)
[2024-03-02] MEDS ORDERED: EMPA10TA PO (08:23)
[2024-03-02] MEDS ORDERED: [UNRECOGNIZED DRUG - OTHER] PO (08:23)
[2024-03-02] MEDS ORDERED: FINE10TA PO (08:23)
[2024-03-02] MEDS ORDERED: SELE200C PO (08:23)
[2024-03-02] MEDS ORDERED: [UNRECOGNIZED DRUG - OTHER] PO (08:23)
[2024-03-02] MEDS ORDERED: ROSU20TA98 PO (08:23)
[2024-03-02] MEDS ORDERED: ASPI-1005 PO (08:23)
[2024-03-02] MEDS ORDERED: GLUC1TAB61 PO (08:23)
[2024-03-02] MEDS ORDERED: EZET10TA48 PO (08:23)
[2024-03-02] MEDS: ASPIRIN 81MG CHEW TAB PO SCH (09:00)
--- NOTE | 2024-03-02 09:14 | NUR ---
Patient refused ASA and states she takes medication at night.
--- NOTE | 2024-03-02 11:53 | CONS ---
Cardiac Consult Note CONSULT NOTE DATE OF SERVICE: Mar 01, 2024 at 10:12 REFERRING PROVIDER: APOLINAR FRANCIS MD REASON FOR CONSULT: Elevated high sensitivity troponin, acute combined congestive heart failure, chest pain and GERD symptomatology HPI: 73-year-old female who is normally followed by Dr. Apolinar Quick who was last seen in our clinic in [address] Dale secondary to a heart murmur in which an echocardiogram revealed [id number] aortic insufficiency with preserved left ventricular function. When patient presented here laboratory data was significantly abnormal for a high sensitivity troponin above 600 an elevated brain natriuretic peptide as well as renal function which was compromise with a GFR less than 30 and a creatinine greater than 2. Patient does have a history chronically of hypertension and diabetes and she does have a strong family history of heart disease involving her father and her younger sister. Patient also describes symptoms of nocturnal GERD going on for the last 20 or so days which had her concerned. She is also describing dyspnea on exertion and shortness of breath with activity and she was recently diagnosed as an outpatient with community-acquired pneumonia has been started on a Z-Rafael and duo nebs to no relief. During my evaluation this morning patient was getting a 2D echocardiogram with our echocardiogram Services. Patient denies any myocardial infarction CVA TIA. Patient's hemoglobin A1c was greater than 8.5%. ROS: No fever, headache, chest pain, abdominal pain, nausea, vomiting, or diarrhea. PMHX: Hypertension Dyslipidemia Diabetes mellitus Poiy-hd-kciyqtty aortic insufficiency by 2D echocardiogram 2021 CKD-IV PSHX: Right foot surgery 2019 Right shoulder rotator cuff repair Right carotid artery surgery Carpal tunnel syndrome surgery bilaterally FH: Strongly positive for first-degree relatives with CAD and CABG SOCIAL: [Noncontributory PHYSICAL EXAMINATION: GENERAL: No acute distress. HEENT: Normocephalic, atraumatic. CARDIAC: Positive S1 and S2. No murmurs. LUNGS: Clear to auscultation bilaterally. ABDOMEN: Bowel sounds present, soft, nontender. EXTREMITIES: No edema bilaterally. NEUROLOGIC: Cranial nerves 2-12 grossly intact. PSYCHIATRIC: Calm. ASSESSMENT: Unstable angina Acute congestive heart failure level of severity 3 present on admission CKD-IV, V Family history of coronary atherosclerosis first-degree relatives PLAN: Would recommend full dose anticoagulation in addition to order an antianginals for patient. Would avoid DIAMOND inhibition or ARB secondary to CKD. Would like to reassess rate renal function in a.m.. Would avoid primary angiography over the weekend and cycle cardiac enzymes but patient may be a better candidate for primary angiography on Monday or Monday once we further assess renal function and also consider Nephrology evaluation prior to any of this getting done considering patient's significantly increased risk for contrast induced nephropathy in the setting of diabetes and underlying renal dysfunction. We will review echocardiogram performed today with further recommendations to follow pending results. Consider initiation of sodium glucose transport 2 inhibitor. Cycle cardiac enzymes In regards to GERD like symptoms this could be underlying CAD as her symptom complex but I will start her on Protonix daily if not already started. Vital Signs 03/01/24 03/01/24 03/01/24 03/01/24 12:33 12:58 13:30 14:10 Temp 98.2 98.2 Pulse 74 74 82 74 Resp 16 20 16 20 B/P (MAP) 146/84 133/67 Pulse Ox 98 98 O2 Delivery Room Air* Room Air* O2 Flow Rate 0 0 FiO2 03/01/24 03/01/24 03/01/24 03/01/24 14:15 15:15 17:24 19:06 Temp 98.2 98.1 98.1 98.1 Pulse 83 91 91 80 Resp 20 20 20 20 B/P (MAP) 139/60 148/76 145/60 139/34 Pulse Ox 90 90 90 90 O2 Delivery Room Air* Nasal Cannula* Nasal Cannula* Nasal Cannula* O2 Flow Rate 0 2 2 2 FiO2 03/01/24 03/01/24 03/01/24 03/01/24 19:14 19:17 19:42 23:43 Temp 99.0 Pulse 83 83 87 78 Resp 19 19 20 19 B/P (MAP) 145/72 Pulse Ox 95 O2 Delivery N/Cannula Low lpm Nasal Cannula* O2 Flow Rate 2.0 2 FiO2 28 03/02/24 03/02/24 03/02/24 03/02/24 00:21 01:50 01:58 04:42 Temp 98.1 98.2 Pulse 75 76 76 Resp 18 18 19 B/P (MAP) 123/56 128/60 Pulse Ox 94 94 94 O2 Delivery Nasal Cannula* Nasal Cannula* Nasal Cannula* O2 Flow Rate 2.0 2.0 2 FiO2 N/A N/A 03/02/24 03/02/24 03/02/24 03/02/24 05:09 07:14 07:40 07:43 Temp 97.9 99.0 Pulse 73 78 77 77 Resp 20 14 18 18 B/P (MAP) 130/55 146/96 Pulse Ox 90 93 O2 Delivery Nasal Cannula* Room Air N/A Room Air O2 Flow Rate 2.0 FiO2 N/A 03/02/24 10:04 Pulse 80 Resp 18 Laboratory Tests Test 03/01/24 11:49 03/01/24 14:21 03/01/24 16:34 03/01/24 16:44 Erythrocyte Sedimentation Rate 34 MM/HR (0-30) D-Dimer Quantitative (PE/DVT) 1650 ng/mL (0-500) Procalcitonin 0.14 ng/mL (0.05-0.5) Blood Gas Specimen Type Arterial Arterial Blood pH 7.378 (7.350-7.450) Arterial Blood Partial Pressure CO2 30 mmHg (32-45) Arterial Blood Partial Pressure O2 59.2 mmHg (83.0-108.0) Arterial Blood HCO3 17.4 mmol/L (21.0-28.0) Arterial Blood Oxygen Saturation 90.6 % (94.0-98.0) Arterial Blood Base Excess -6.3 mmol/L (-2.0-3.0) Blood Gas Temperature 37.0 CELSIUS (35.5-37.0) Blood Gas Flow-by 2.00 L/min (0.00-15.00) Blood Gas Vent Mode 2L NC (ROOM AIR) FiO2 28.0 % Blood Gas Specimen Comment DANIELA CHACON LR Lactic Acid Level 1.8 mmol/L (0.8-2.5) Urine Color COLORLESS (YELLOW) Urine Appearance CLEAR (CLEAR) Urine pH 5.0 (5.0-8.0) Urine Specific [place] 1.016 (1.001-1.031) Urine Protein NEGATIVE mg/dL (NEGATIVE) Urine Glucose (UA) >=1000 mg/dL (NEGATIVE) Urine Ketones NEGATIVE mg/dL (NEGATIVE) Urine Occult Blood NEGATIVE (NEGATIVE) Urine Nitrate NEGATIVE (NEGATIVE) Urine Bilirubin NEGATIVE mg/dL (NEGATIVE) Urine Urobilinogen 0.2 mg/dL (0.2-1.0) Urine Leukocyte Esterase NEGATIVE [place]amie/uL Urine RBC 0-1 /HPF (0-1) Urine WBC 0-1 /HPF (0-1) Urine Squamous Epithelial Cells RARE /HPF (0-2) Urine Bacteria None /HPF (None Seen) Test 03/02/24 07:09 White Blood Count 10.4 K/uL (4.8-10.8) Red Blood Count 3.59 MIL/uL (4.00-5.50) Hemoglobin 10.9 g/dL (12.0-16.0) Hematocrit 32.8 % (36-48) Mean Corpuscular Volume 91.4 fL (79-99) Mean Corpuscular Hemoglobin 30.4 pg (27.0-33.0) Mean Corpuscular Hemoglobin Concent 33.2 g/dL (32.0-36.0) Red Cell Distribution Width 14.7 % (11.0-15.5) Platelet Count 238 K/uL (130-400) Mean Platelet Volume 12.2 fL (7.5-10.5) Nucleated Red Blood Cells 0.0 % (0.0-0.19) Sodium Level 143 mmol/L (136-145) Potassium Level 4.8 mmol/L (3.5-5.1) Chloride Level 107 mmol/L (101-111) Carbon Dioxide Level 24 mmol/L (21-32) Blood Urea Nitrogen 60 mg/dL (7-18) Creatinine 2.2 mg/dL (0.5-1.0) Glomerular Filtration Rate Calc 23 mL/min (>90) Random Glucose 187 mg/dL (70-105) Hemoglobin A1c 8.1 % (4.0-6.0) Estimated Average Glucose (eAG) 186 mg/dL (70-126) Total Calcium 8.0 mg/dL (8.5-10.1) Ionized Calcium 1.05 MMOL/L (1.16-1.32) Phosphorus Level 5.7 mg/dL (2.5-4.9) Magnesium Level 3.40 mg/dL (1.80-2.40) Total Bilirubin 0.2 mg/dL (0.2-1.0) Aspartate Amino Transf (AST/SGOT) 88 U/L (10-37) Alanine Aminotransferase (ALT/SGPT) 287 U/L (12-78) Alkaline Phosphatase 116 U/L (50-136) Troponin I High Sensitivity 657 ng/L (4-50) Total Protein 6.6 g/dL (6.0-8.3) Albumin 3.0 g/dL (3.5-5.0) Current Medications Medications Dose Ordered Sig/Arely Route PRN Reason Start Time Stop Time Status Last Admin Albuterol 1 udvial ONCE ONCE IH 03/01/24 12:00 03/01/24 12:01 DC 03/01/24 12:57 Methylprednisolone Sodium Succinate 125 mg ONCE ONCE IVP 03/01/24 12:00 03/01/24 12:01 DC 03/01/24 11:51 Ceftriaxone Sodium 2 gm ONCE ONCE IVPB 03/01/24 12:00 03/01/24 12:01 DC 03/01/24 11:51 Sodium Chloride 1,000 ml @ 125 mls/hr ONCE ONCE IV 03/01/24 12:00 03/01/24 19:59 DC 03/01/24 11:51 Famotidine 20 mg Q48H PO 03/01/24 21:00 03/31/24 20:59 03/01/24 20:46 Albuterol 1 udvial T3VANEX 03/01/24 14:00 03/31/24 13:59 03/02/24 10:03 Famotidine 20 mg BID IV 03/01/24 21:00 03/01/24 12:38 DC Insulin Human Lispro INSULIN SLIDING SCAL... ACHS SQ 03/01/24 16:30 03/31/24 16:29 Ceftriaxone Sodium 1 gm Q24H IVPB 03/02/24 13:00 03/12/24 12:59 Methylprednisolone Sodium Succinate 40 mg Q8H IVP 03/01/24 13:00 03/31/24 12:59 03/02/24 06:40 Azithromycin 250 ml @ 250 mls/hr Q24H IVPB 03/01/24 13:00 03/11/24 12:59 03/01/24 14:27 Furosemide 40 mg Q12H IV 03/01/24 13:00 03/31/24 12:59 03/02/24 01:36 Sodium Chloride 4 ml STK-MED ONCE 03/01/24 18:29 03/01/24 18:29 DC 03/01/24 19:14 Sodium Chloride 4 ml STK-MED ONCE IH 03/01/24 23:03 12/27/24 23:03 WI 03/01/24 23:43 Sodium Chloride 4 ml STK-MED ONCE IH 03/02/24 02:12 03/02/24 02:13 DC 03/02/24 02:13 Aspirin 81 mg DAILY PO 03/02/24 09:00 04/01/24 08:59 Atorvastatin Calcium 40 mg HS PO 03/02/24 21:00 04/01/24 20:59 Reported Medications Selenium (Selenium) 200 Mcg Capsule, 1 CAP PO DAILY for 30 Days, #30 CAP 0 Refills 03/02/24 Cholecalciferol (Vitamin D3) (Vitamin D3) 50 Mcg (2000 Unit) Capsule, 1 CAP PO DAILY for 30 Days, #30 CAP 0 Refills 03/02/24 [Garden Blend] No Conflict Check, 1 PO BID 03/02/24 [Vinard Blend] No Conflict Check, 1 PO BID 03/02/24 [Orcharrd Blend] No Conflict Check, 1 PO BID 03/02/24 Insulin Lispro (Humalog) 100 Unit/Ml Insuln.pen, 0 SQ AD, SYRINGE 03/02/24 Vitamin E (Dl,Tocopheryl Acet) (Vitamin E) 180 Mg (400 Unit) Capsule, 180 MG PO DAILY, CAP 03/02/24 Multivit-Min/Iron/FA/Vit K/Lut (Centrum Silver Women Tablet) 8 Mg Iron-400 Mcg- 50 Mcg-300 Mcg Tablet, 1 EACH PO DAILY, TAB 03/02/24 Glucosamine/Chondro Escalante A (Glucosamine-Chondroitin Tab) 500 Mg-400 Mg Tablet, 1 TAB PO BID for 30 Days, #60 TAB 0 Refills 03/02/24 Empagliflozin (Jardiance) 10 Mg Tablet, 1 TAB PO DAILY for 30 Days, #30 TAB 0 Refills 03/02/24 Aspirin (Aspirin) 81 Mg Tab.chew, 81 MG PO HS, TAB.CHEW 03/02/24 Aspirin (ASPIRIN 81MG CHEW TAB) 81 Mg Tab.chew, 1 TAB PO DAILY for 30 Days, #30 TAB 0 Refills 03/02/24 Finerenone (Kerendia) 10 Mg Tablet, 1 TAB PO DAILY for 30 Days, #30 TAB 0 Refills 03/02/24 Ezetimibe (Ezetimibe) 10 Mg Tablet, 1 TAB PO DAILY for 30 Days, #30 TAB 0 Refills 03/02/24 Carvedilol (Carvedilol) 12.5 Mg Tablet, 1 TAB PO BID for 30 Days, #60 TAB 0 Refills 03/02/24 Rosuvastatin Calcium (Rosuvastatin Calcium) 20 Mg Tablet, 20 MG PO DAILY, TAB 03/02/24 APOLINAR FARNCIS MD Mar 02, 2024 11:53
[2024-03-02] MEDS: cefTRIAXone 1G VIAL IVPB SCH (12:23)
--- NOTE | 2024-03-02 12:42 | PN ---
[facility] PROGRESS NOTE Date Patient Seen: Mar 02, 2024 Time of Visit: 12:38 Supervising Physician: Dr. Walton Primary Care Physician: Dr. Apolinar Quick Outpatient Specialists: [facility] last seen in 2021 Inpatient Consults: [facility] PROBLEM LIST: Acute hypoxemic respiratory failure, POA New onset congestive heart failure, POA Community acquired pneumonia, POA Hypocalcemia, POA Hypomagnesemia Renal insufficiency, POA GFR 24 (no prior GFR available to compare baseline) Anemia of chronic disease Hypoalbuminemia Elevated D-dimer, PE was ruled out via CTA chest Chronic problem list: Hypertension, hyperlipidemia, diabetes mellitus type 2 INTERVAL HISTORY: 03/02 patient is awake alert oriented x3 no acute event overnight. Blood pressure is 146/96 pulse is 78 respiratory rate is 14. T-max 99.0 patient is from room air sat 93%. Lab this morning with the bicarb 24 BUN is 60 and this is actually up from 54 yesterday creatinine is 2.2 up from 2.1 glucose 187 A1c is 8.1 lactic acid is 1.8. Liver function with AST down to 88 from 280 ALT is 287 down from 400. Troponin level is 607 and we can continue to trend this. In the meantime cardiology has been consulted. Aspirin, statin has been started. We will add anticoagulation with lovenox. COntinue to monitor closely. REVIEW OF SYSTEMS: 12 point ROS reviewed with patient. Pertinent positives mentioned above. Otherwise negative. PHYSICAL EXAM: GENERAL: Alert, awake oriented x 3 HEENT: EOMI, Sclera non icteric, moist mucosa NECK: Supple, no JVD, trachea midline LUNGS: Breathing was even and unlabored. Upper lobes crackles, lower lobes diminished bilaterally. No wheezes. HEART: Regular rate and rhythm. Normal S1 and S2, without murmurs ABD: Abdomen soft, nontender. Bowel sounds present EXT: No clubbing cyanosis or +1 edema NEURO: Alert and oriented x3, follows commands, no neuro deficits noted. Vital Signs (last 8hr) Date Time Temp Pulse Resp B/P (MAP) Pulse Ox O2 Delivery O2 Flow Rate FiO2 03/02/24 10:04 80 18 03/02/24 07:43 77 18 N/A Room Air 21 03/02/24 07:40 77 18 03/02/24 07:14 99.0 78 14 146/96 93 Room Air 03/02/24 05:09 97.9 73 20 130/55 90 Nasal Cannula* 2.0 N/A 03/02/24 04:42 94 Nasal Cannula* 2 28 LABS: Hematology Labs: Test 03/02/24 07:09 03/01/24 11:49 03/01/24 09:52 Range/Units White Blood Count 10.4 # 4.8-10.8 K/uL Red Blood Count 3.59 L 4.00-5.50 MIL/uL Hemoglobin 10.9 L 12.0-16.0 g/dL Hematocrit 32.8 L 36-48 % Mean Corpuscular Volume 91.4 79-99 fL Mean Corpuscular Hemoglobin 30.4 27.0-33.0 pg Mean Corpuscular Hemoglobin Concent 33.2 32.0-36.0 g/dL Red Cell Distribution Width 14.7 11.0-15.5 % Platelet Count 238 130-400 K/uL Mean Platelet Volume 12.2 H 7.5-10.5 fL Nucleated Red Blood Cells 0.0 0.0-0.19 % Erythrocyte Sedimentation Rate 34 H 0-30 MM/HR Immature Granulocyte % (Auto) 0.4 0-1 % Neutrophils (%) (Auto) 82.1 H 40.0-77.0 % Lymphocytes (%) (Auto) 9.5 L 21.0-51.0 % Monocytes (%) (Auto) 7.6 3.0-13.0 % Eosinophils (%) (Auto) 0.2 0.0-8.0 % Basophils (%) (Auto) 0.2 0.0-5.0 % Neutrophils # (Auto) 6.7 1.8-7.7 K/uL Lymphocytes # (Auto) 0.8 L 1.0-4.8 K/uL Monocytes # (Auto) 0.6 0.1-1.0 K/uL Eosinophils # (Auto) 0.02 0.00-0.70 K/uL Basophils # (Auto) 0.02 0.00-0.20 K/uL Absolute Immature Granulocyte (auto 0.03 0-1 K/uL White Cell Morphology Comment See comments Chemistry Labs: Test 03/02/24 07:09 03/01/24 16:34 03/01/24 11:49 03/01/24 09:52 Range/Units Sodium Level 143 136-145 mmol/L Potassium Level 4.8 3.5-5.1 mmol/L Chloride Level 107 101-111 mmol/L Carbon Dioxide Level 24 21-32 mmol/L Blood Urea Nitrogen 60 H 7-18 mg/dL Creatinine 2.2 H 0.5-1.0 mg/dL Glomerular Filtration Rate Calc 23 >90 mL/min Random Glucose 187 H 70-105 mg/dL Hemoglobin A1c 8.1 H 4.0-6.0 % Estimated Average Glucose (eAG) 186 H 70-126 mg/dL Total Calcium 8.0 L 8.5-10.1 mg/dL Ionized Calcium 1.05 L 1.16-1.32 MMOL/L Phosphorus Level 5.7 H 2.5-4.9 mg/dL Magnesium Level 3.40 H 1.80-2.40 mg/dL Total Bilirubin 0.2 # 0.2-1.0 mg/dL Aspartate Amino Transf (AST/SGOT) 88 H 10-37 U/L Alanine Aminotransferase (ALT/SGPT) 287 #H 12-78 U/L Alkaline Phosphatase 116 50-136 U/L Troponin I High Sensitivity 657 *H 4-50 ng/L Total Protein 6.6 6.0-8.3 g/dL Albumin 3.0 L 3.5-5.0 g/dL Lactic Acid Level 1.8 0.8-2.5 mmol/L Procalcitonin 0.14 0.05-0.5 ng/mL Direct Bilirubin 0.1 0.0-0.3 mg/dL Total Creatine Kinase 142 21-232 U/L B-Type Natriuretic Peptide 2430 H 0-100 pg/mL Thyroid Stimulating Hormone (TSH) 1.26 0.36-3.74 uIU/mL Coagulation Labs: Test 03/01/24 11:49 Range/Units D-Dimer Quantitative (PE/DVT) 1650 *H 0-500 ng/mL DIAGNOSTICS / RADIOLOGY RESULTS: [ ] PLAN NEURO: Minimize central acting medications as possible. Fall Precautions. Well lighted room through the day and minimize interruptions through the night to prevent acute delirium. PULMONARY: Supplemental 02 as needed Titrate Fio2 to keep Spo2 > or = 90% DuoNebs and CPT as needed IS hourly while awake for pulmonary hygiene CARDIOVASCULAR: Follow hemodynamics. Titrate vasopressor to keep MAP >65 or systolic blood pressure >95mmHg Cardiology consultation Trend troponin Asa Statin Echocardiogram AC DRIPS: Lovenox LINES: PIV GI & NUTRITION: Continue nutritional support Aspirations precautions Prokinetic agents and laxatives as needed KIDNEYS & ELECTROLYTES: Strict monitoring of intake and output Daily weights Avoid nephrotoxic agents Monitor electrolytes and replace as needed Goal urine output of 30mL/hr or 0.5mL/kg/hr ENDOCRINE: Maintain blood glucose between 100-180 at all times. Insulin sliding scale for blood glucose management INFECTIOUS DISEASE: Trend temperature. Iglesias-culture if febrile. Micro: Urine Blood Sputum Antibiotics: Rocephine and azithromycin HEMATOLOGY & COAGULATION: Monitor H&H. Keep Hgb > 7 Transfuse 1 unit of PRBC for Hgb < 7 Transfuse 1 pack of platelets of platelets < 20, 000 Watch for any signs and symptoms of bleeding SKIN: Pressure ulcer prevention per facility protocol Rehab: PT/OT Prophylaxis: GI: Pepcid DVT: Lovenox Code Status: Full Resuscitation Disposition: TELE Other: Total patient care time exceeds 35 minutes excluding all procedures. Case was discussed and seen with my supervising physician. The above plan was formulated and agreed upon. The patient has seen and evaluated, the case has been discussed with the RN LONG TERM CARE, I agree with the clinical findings and plan of care, time spend at the bedside more than 40 minutes. PEDRITO VALENTINE [employer]ER Mar 02, 2024 12:42 IMER WALTON MD Mar 08, 2024 10:50
[2024-03-02] MEDS: CEFTRIAXONE 2GM VIAL IVPB SCH (13:00)
[2024-03-02] MEDS: ENOXAPARIN SODIUM 40 MG/0.4 ML SYRINGE SQ SCH (13:25)
--- NOTE | 2024-03-02 13:57 | HMCSR ---
APPROVED REPORT EXAM: Two-dimensional and M-mode echocardiogram with Doppler and color Doppler. INDICATION ICD: Shortness of breath R06.02 2D Dimensions RVDd4.3 cmLVEF(%)44.1 (>50%)LVED Vol(simp.)131.0 mL IVSd0.9 (0.7-1.1cm)FS(%)22 %LVES Vol(simp.)78.0 mL LVDd4.6 (3.8-5.6cm)LA (2D)4.0 (1.6-4.0cm)LVEF(%, simp.)41 % PWd1.3 (0.7-1.1cm)Ao Root(2D)2.5 (2.0-3.7cm)LA ESV INDEX (4CH)35.60 mL/m2 IVSs1.1 cmLVOT diam2.0 (1.8-2.4cm)LA ESV INDEX (2CH)43.60 mL/m2 LVDs3.6 (2.5-4.0cm)IVC diam2.0 cmLA ESV INDEX (BP)38.40 mL/m2 PWs1.7 cm M-Mode Dimensions EPSS1.3 cm LA (MM)4.0 (1.6-4.0cm) Ao Root(MM)2.7 (2.0-3.7cm) Aortic Valve AoV VTI0.3 mAo Mean GR4.0 mmHgLVOT VTI0.16 m ALEX (VMAX)1.7 cm2Al P1/2T282 msAVA (VTI) 1.7 cm2 Mitral Valve MV E Xvtz673.2 cm/sDECEL Pwiv394 ms MV A Lhcn803.0 cm/sP 1/2 T45 ms E/A ratio1.4MVA (PHT)4.9 cm2 MR Max PG89 mmHg TDI E/E' Sjfmhw70.8E/E' Jaiiayq88.4 Medial E' Peak V4.00 cm/sLateral E' Peak V6.20 cm/s Tricuspid Valve TR Vmax4.1 m/sRAP (EST) 8 chPpJVAJ59.7 mmHg TR Peak GR68.7 mmHg Left Ventricle The left ventricle is normal size. Mid and distal anteroseptal hypokinesis moderate Moderate anterior and apical hypokinesis noted There is normal left ventricular wall thickness. LVEF is 40% Stage II d iastolic dysfunction. Right Ventricle The right ventricle is mildly dilated. The right ventricular systolic function is normal. Atria The left atrium size is normal. The right atrium is moderately dilated. Aortic Valve Aortic valve is trileaflet and opens well. Mild-moderate aortic insufficiency There is no aortic valv ular stenosis. Mitral Valve The mitral valve is mildly thickened. Mitral valve leaflets open well. Mitral regurgitation is mild. There is no mitral valve stenosis. Tricuspid Valve The tricuspid valve is normal in structure. Mild-moderate tricuspid valve regurgitation noted. Right ventricular systolic pressure is estimage at 76mmHg. Pulmonic Valve The pulmonary valve is normal in structure. There is no pulmonic valvular regurgitation. Great Vessels The aortic root is normal in size. The IVC is normal in size and collapses <50% with inspiration. Pericardium There is small pericardial effusion. Conclusion LVEF is 40% Stage II diastolic dysfunction. Mid and distal anteroseptal hypokinesis moderate Moderate anterior and apical hypokinesis noted Mild-moderate aortic insufficiency Mild-moderate tricuspid valve regurgitation noted. Right ventricular systolic pressure is estimage at 76mmHg consistent with moderate-severe pulmonary h ypertension
--- NOTE | 2024-03-02 15:05 | NUR ---
Called to Dr. Pacheco' office to inform of nephrology consult. No answer.
--- NOTE | 2024-03-02 17:05 | NUR ---
INITIAL ASSESSMENT Patient lives with spouse, LUL Pretty. She has no home services. DME: BPM, glucometer (uses insulin), nebulizer. SHe is able to complete ADLs independently and drives. Patient works part-time. PCP is Dr. Apolinar Quick. [facility]acy [facility] in [place]. Patient has no issues with having stable mcfp to live in or transportation. She and spouse have lived in their home for some time. No concerns voiced regarding not having enough food in the home. No safety concerns voiced regarding returning home. DCP is home. Addendum: 03/02/24 at 1706 by DELFINA CALDERON SS Amended: Links added.
[2024-03-02] MEDS: Solu-medROL 40MG VIAL IVP SCH (17:52)
[2024-03-02] MEDS: ENOXAPARIN SODIUM 40 MG/0.4 ML SYRINGE SQ ONE (17:56)
--- NOTE | 2024-03-02 19:53 | HMCIMG ---
US VENOUS DOPPLER BILATERAL INDICATION: Swelling. Elevated DDIMER TECHNIQUE: Real-time venous Doppler ultrasound was performed using B mode, color flow and spectral analysis. FINDINGS: The visualized greater saphenous junction, common femoral, deep femoral, superficial femoral, popliteal and posterior tibial veins demonstrate normal compressibility and flow. No DVT is identified. IMPRESSION: No evidence of DVT in the visualized bilateral extremities.
[2024-03-02] MEDS: atorVAStatin 40 MG TABLET PO SCH (20:06)
[2024-03-02] MEDS: RANOLAZINE 500 MG TAB.SR.12H PO SCH (22:42)
[2024-03-02] MEDS: NITROGLYCERIN 1GM OINT 1 INCH/1GM TD SCH (22:42)
[2024-03-03] VITALS (22 sets, daily range): BP systolic 131–155; BP diastolic 59–83; PULSE 71–90; RESP 14–27; TEMP 97.8–98.7; O2SAT 93–98
[2024-03-03 04:27] LABS: BASOPHILS # (AUTO) 0.01 K/uL (0.00-0.20); BASOPHILS % (AUTO) 0.1 % (0.0-5.0); HEMATOCRIT 34.4 % (36-48); IMMATURE GRANULOCYTE ABSOLUTE 0.09 K/uL (0-1); LYMPHOCYTES # (AUTO) 0.6 K/uL (1.0-4.8); LYMPHOCYTES % (AUTO) 4.6 % (21.0-51.0); MEAN CORPUSCULAR HEMOGLOBIN 30.2 pg (27.0-33.0); MEAN CORPUSCULAR VOLUME 94.5 fL (79-99); MONOCYTES # (AUTO) 0.9 K/uL (0.1-1.0); MONOCYTES % (AUTO) 6.5 % (3.0-13.0); NEUTROPHILS # (AUTO) 12.2 K/uL (1.8-7.7); NEUTROPHILS % (AUTO) 88.1 % (40.0-77.0); PLATELET COUNT (AUTO) 256 K/uL (130-400); RED BLOOD CELL COUNT(AUTO) 3.64 MIL/uL (4.00-5.50); WHITE BLOOD COUNT (AUTO) 13.8 K/uL (4.8-10.8)
[2024-03-03 04:58] LABS: CREATININE 2.2 mg/dL (0.5-1.0); POTASSIUM 4.5 mmol/L (3.5-5.1)
[2024-03-03 05:03] LABS: B-TYPE NATRIURETIC PEPTIDE 2230 pg/mL (0-100)
--- NOTE | 2024-03-03 09:47 | NUR ---
DR. ANTOINE CALLED. CONSULT MESSAGE LEFT ON ANSWERING SERVICE.
--- NOTE | 2024-03-03 09:51 | PN ---
[facility] PROGRESS NOTE Date Patient Seen: Mar 03, 2024 Time of Visit: 09:47 Supervising Physician: Dr. Carloz Rivera Primary Care Physician: Dr. Apolinar Quick Outpatient Specialists: [facility] last seen in 2021 Inpatient Consults: [facility] PROBLEM LIST: NSTEMI Acute hypoxemic respiratory failure, POA Acute on chronic preserved EF congestive heart failure - LVEF 40% Community acquired pneumonia, POA Acute renal failure secondary to ATN on chronic kidney disease Hyperglycemia in the setting of type 2 DM Hypocalcemia, POA Hypomagnesemia Anemia of chronic disease Hypoalbuminemia Elevated D-dimer, PE was ruled out via CTA chest Chronic problem list: Hypertension, hyperlipidemia, diabetes mellitus type 2 INTERVAL HISTORY: 03/02 patient is awake alert oriented x3 no acute event overnight. Blood pressure is 146/96 pulse is 78 respiratory rate is 14. T-max 99.0 patient is from room air sat 93%. Lab this morning with the bicarb 24 BUN is 60 and this is actually up from 54 yesterday creatinine is 2.2 up from 2.1 glucose 187 A1c is 8.1 lactic acid is 1.8. Liver function with AST down to 88 from 280 ALT is 287 down from 400. Troponin level is 607 and we can continue to trend this. In the meantime cardiology has been consulted. Aspirin, statin has been started. We will add anticoagulation with lovenox. COntinue to monitor closely. 03/03 patient is awake alert and oriented x3 lying down in bed resting not in a cute distress, she denies shortness of breath remains on oxygen support at 2 L with sats 94%. Remarkable finding with the troponin level that is steady peak at 657 yesterday. Her kidney function with creatinine of 2.2 this is similar to yesterday. We are consulting her outpatient kidney specialist Dr. Osborne as requested from cardiology to mitigate contrast induce nephropathy. Continue with the current regimen with diuretic. Continue to monitor I's and O's. Continue with current antibiotic as well for pneumonia. We will discontinue steroid given no indication for this. Continue with the breathing treatment. REVIEW OF SYSTEMS: 12 point ROS reviewed with patient. Pertinent positives mentioned above. Otherwise negative. PHYSICAL EXAM: GENERAL: Alert, awake oriented x 3 HEENT: EOMI, Sclera non icteric, moist mucosa NECK: Supple, no JVD, trachea midline LUNGS: Breathing was even and unlabored. Upper lobes crackles, lower lobes diminished bilaterally. No wheezes. HEART: Regular rate and rhythm. Normal S1 and S2, without murmurs ABD: Abdomen soft, nontender. Bowel sounds present EXT: No clubbing cyanosis or +1 edema NEURO: Alert and oriented x3, follows commands, no neuro deficits noted. Vital Signs (last 8hr) Date Time Temp Pulse Resp B/P (MAP) Pulse Ox O2 Delivery O2 Flow Rate FiO2 03/03/24 08:00 98.4 82 17 134/73 95 Nasal Cannula 2.0 03/03/24 08:00 94 Nasal Cannula* 2 03/03/24 07:32 77 20 03/03/24 07:32 77 19 N/Cannula Low lpm 2.0 03/03/24 07:00 76 15 142/80 100 Nasal Cannula 2.0 03/03/24 05:00 83 16 143/83 96 Nasal Cannula 2.0 03/03/24 04:17 82 16 146/59 96 Nasal Cannula 2.0 03/03/24 04:00 85 27 131/77 96 Nasal Cannula 2.0 03/03/24 03:17 85 18 148/77 96 Nasal Cannula 2.0 03/03/24 03:00 85 14 152/66 96 Nasal Cannula 2.0 03/03/24 02:18 78 20 03/03/24 02:17 80 15 134/71 98 Room Air 03/03/24 02:00 78 15 131/71 98 Room Air LABS: Hematology Labs: Test 03/03/24 03:52 03/01/24 11:49 03/01/24 09:52 Range/Units White Blood Count 13.8 #H 4.8-10.8 K/uL Red Blood Count 3.64 L 4.00-5.50 MIL/uL Hemoglobin 11.0 L 12.0-16.0 g/dL Hematocrit 34.4 L 36-48 % Mean Corpuscular Volume 94.5 79-99 fL Mean Corpuscular Hemoglobin 30.2 27.0-33.0 pg Mean Corpuscular Hemoglobin Concent 32.0 32.0-36.0 g/dL Red Cell Distribution Width 15.0 11.0-15.5 % Platelet Count 256 130-400 K/uL Mean Platelet Volume 11.9 H 7.5-10.5 fL Immature Granulocyte % (Auto) 0.7 0-1 % Neutrophils (%) (Auto) 88.1 H 40.0-77.0 % Lymphocytes (%) (Auto) 4.6 L 21.0-51.0 % Monocytes (%) (Auto) 6.5 3.0-13.0 % Eosinophils (%) (Auto) 0.0 0.0-8.0 % Basophils (%) (Auto) 0.1 0.0-5.0 % Neutrophils # (Auto) 12.2 H 1.8-7.7 K/uL Lymphocytes # (Auto) 0.6 L 1.0-4.8 K/uL Monocytes # (Auto) 0.9 0.1-1.0 K/uL Eosinophils # (Auto) 0.00 0.00-0.70 K/uL Basophils # (Auto) 0.01 0.00-0.20 K/uL Absolute Immature Granulocyte (auto 0.09 0-1 K/uL Nucleated Red Blood Cells 0.0 0.0-0.19 % Erythrocyte Sedimentation Rate 34 H 0-30 MM/HR White Cell Morphology Comment See comments Chemistry Labs: Test 03/03/24 03:52 03/02/24 21:10 03/02/24 07:09 03/01/24 16:34 Range/Units Sodium Level 142 136-145 mmol/L Potassium Level 4.5 3.5-5.1 mmol/L Chloride Level 104 101-111 mmol/L Carbon Dioxide Level 24 21-32 mmol/L Blood Urea Nitrogen 65 H 7-18 mg/dL Creatinine 2.2 H 0.5-1.0 mg/dL Glomerular Filtration Rate Calc 23 >90 mL/min Random Glucose 253 H 70-105 mg/dL Total Calcium 8.4 L 8.5-10.1 mg/dL Magnesium Level 3.00 H 1.80-2.40 mg/dL B-Type Natriuretic Peptide 2230 H 0-100 pg/mL Troponin I High Sensitivity 522 *H 4-50 ng/L Hemoglobin A1c 8.1 H 4.0-6.0 % Estimated Average Glucose (eAG) 186 H 70-126 mg/dL Ionized Calcium 1.05 L 1.16-1.32 MMOL/L Phosphorus Level 5.7 H 2.5-4.9 mg/dL Total Bilirubin 0.2 # 0.2-1.0 mg/dL Aspartate Amino Transf (AST/SGOT) 88 H 10-37 U/L Alanine Aminotransferase (ALT/SGPT) 287 #H 12-78 U/L Alkaline Phosphatase 116 50-136 U/L Total Protein 6.6 6.0-8.3 g/dL Albumin 3.0 L 3.5-5.0 g/dL TSH 3rd Generation 0.398 L 0.450-4.500 uIU/mL Lactic Acid Level 1.8 0.8-2.5 mmol/L Test 03/01/24 11:49 03/01/24 09:52 Range/Units Procalcitonin 0.14 0.05-0.5 ng/mL Direct Bilirubin 0.1 0.0-0.3 mg/dL Total Creatine Kinase 142 21-232 U/L Thyroid Stimulating Hormone (TSH) 1.26 0.36-3.74 uIU/mL Coagulation Labs: Test 03/01/24 11:49 Range/Units D-Dimer Quantitative (PE/DVT) 1650 *H 0-500 ng/mL DIAGNOSTICS / RADIOLOGY RESULTS: [ ] PLAN Admit to medical floor with telemetry monitoring. Monitor respiratory status closely. Continue oxygen therapy, titrate to keep SpO2 equal to greater than 92%. Continue nebulizer treatments. RT to provide IS and education on use. Robitussin DM as needed for cough. DC Solu-Medrol. Continue antibiotic therapy: Rocephin IV and Zithromax IV. Consult Cardiology and nephrology Trend troponins and EKGs. Fluid restriction a 1200 mL. Strict I&Os. Daily weights. Echo in a[facility]m. heart clinic to read. [id number] mg p.o. daily. Atorvastatin 40 mg p.o. daily. Lasix 40 mg IV b.i.d. P.r.n. medications for: Pain, nausea, vomiting, constipation, hypertension Blood pressure checks every 4 hours and as needed. Reconcile home medications once available. Monitor renal and liver function. Monitor electrolytes and treat accordingly. A.m. labs: CBC, BNP, Mag, phos, TSH, A1c, troponin, GI and DVT prophylaxis. NEURO: Minimize central acting medications as possible. Maintain fall precautions, adequate lighting during the day PULMONARY: Supplemental 02 as needed. Maintain aspiration precautions at all times CARDIOVASCULAR: Follow hemodynamics. Vital signs per facility protocol GI & NUTRITION: Continue with nutritional support. Continue stool softeners and laxatives as needed. KIDNEYS & ELECTROLYTES: Strict monitoring of intake, output and overall fluid balance. Avoid nephrotoxic medications to the extent possible. Medications to be dosed according to renal function. Monitor electrolytes and replace as needed ENDOCRINE: Maintain blood glucose between 100-180 at all times. Hypoglycemia protocol in place INFECTIOUS DISEASE: Trend temperature, WBC and procalcitonin level Follow cultures, deescalate antibiotics as soon as possible. Panculture if new onset fever ONCOLOGY/HEMATOLOGY/COAGULATION: Monitor for s/s of bleeding Monitor hemoglobin, coagulation studies as needed SKIN: Pressure ulcer prevention per facility protocol Specialty mattress ORTHO/REHAB: Continue PT/OT Prophylaxis: Continue GI and DVT prophylaxis Code Status: Full Resuscitation Disposition: TBD TIME SPENT: >35 min PEDRITO VALENTINE CNP Mar 03, 2024 09:51
[2024-03-03] MEDS: IpraTROPium/alBUTERol SULFATE 3 ML SOLUTION IH ONE (11:05)
[2024-03-03] MEDS: ENOXAPARIN SODIUM 80 MG/0.8 ML SQ SCH (14:00)
--- NOTE | 2024-03-03 14:21 | PN ---
Cardiology Progress Note Date of Service: 03/03/2024 Attending Registered Account Administrator: Dr. Lesley Swartz Primary Registered Account Administrator: Dr. 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 The patient complains of shortness of breath with associated chest pain that develops with minimal physical activity. She denies any palpitations. As per the nurse, there were no overnight reported events. Vitals/Labs Vital Signs Date Time Temp Pulse Resp B/P (MAP) Pulse Ox O2 Delivery O2 Flow Rate FiO2 03/03/24 12:00 97.9 85 19 144/72 91 Room Air 03/03/24 11:12 2.0 28 General: Awake and alert x3. No acute distress. Ill appearing. HEENT: Normocephalic, atraumatic. EOMI. Oral mucosa was moist. Neck: No masses, JVD, or carotid bruits. Lungs: No respiratory distress. SCM. Bilateral air entry. Crackles noted to the bilateral lower lung castillo. Cardio: Regular rate. Normal S1 and S2. No obvious murmurs, rubs, or gallops. Abdomen: Soft, nontender, nondistended. No organomegaly. Normoactive bowel sounds x 4 quadrants. Extremities. No edema, clubbing, or cyanosis. +2 pulses noted throughout. Neuro: Cranial nerves II through XII are grossly intact. No focal deficits identified. 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 Mid and distal anteroseptal hypokinesis. LV systolic function is moderately reduced with an estimated LVEF of 40% with stage 2 diastolic dysfunction. Mild RV dilation. Moderate RA dilation. Mild MR. Mild-moderate AR and TR. RVSP is 76 mmHg. Small pericardial effusion. -The patient will continue on furosemide 40 mg IV BID in order to target a 2-3L fluid loss per day or a BNP level less than half of what it was upon admission. -In addition, we will restart the patient on carvedilol, but at a reduced dose of 6.25 mg BID. -She is not a candidate for GDMT with ACEI/ARB/ARNI therapy or aldosterone antagonist therapy due to her advanced renal dysfunction. -Please record strict I/O's, daily weights, and restrict fluids to less than 2.0L/day. 2. Elevated troponin -HS troponin I peak: 657 -2D echocardiogram 03/02/2024: Moderate anterior and apical hypokinesis. Mid and distal anteroseptal hypokinesis. LV systolic function is moderately reduced with an estimated LVEF of 40% with stage 2 diastolic dysfunction. -It is unclear whether the elevated troponin is a type I MA (ACS) or type II MA (demand ischemia), but given the patient's LV systolic dysfunction, wall motion abnormalities, and comorbidities, there is a high probability of underlying CAD. -As a result, we will first optimize the patient's volume status and renal function (pending Nephro consult), but recommend that she undergo further ischemic evaluation in the upcoming days. -In the meantime, she will continue on aspirin 81 mg daily, full dose Lovenox (1mg/kg) Q24H (adjusted due to renal dysfunction), carvedilol 6.25 mg BID, ranolazine ER 500 mg BID, atorvastatin 40 mg QHS, and PRN SL nitroglycerin for breakthrough chest pain. This case was discussed with my Supervising Physician, Dr. Lesley Swartz, and the above mentioned plan was formulated and agreed upon. -Progress note written by Justin Mcconnell, MSN, [employer], AGACNP- JUSTIN MCCONNELL NP Mar 03, 2024 14:21
[2024-03-03] MEDS: IpraTROPium/alBUTERol SULFATE 3 ML SOLUTION IH SCH (18:55)
[2024-03-03] MEDS: ASPIRIN 81MG CHEW TAB PO SCH (20:47)
[2024-03-03] MEDS: carVEDIlol 6.25 MG TABLET PO SCH (20:48)
[2024-03-03] MEDS: BENZOCAINE/MENTH/CETYLPYRD CL 1 EACH LOZENGE MM PRN (20:54)
[2024-03-04] VITALS (12 sets, daily range): BP systolic 111–146; BP diastolic 56–77; PULSE 71–83; RESP 16–20; TEMP 97.7–98.4; O2SAT 89–96
[2024-03-04 03:31] LABS: BASOPHILS # (AUTO) 0.02 K/uL (0.00-0.20); BASOPHILS % (AUTO) 0.2 % (0.0-5.0); EOSINOPHILS # (AUTO) 0.02 K/uL (0.00-0.70); EOSINOPHILS % (AUTO) 0.2 % (0.0-8.0); HEMATOCRIT 35.1 % (36-48); IMMATURE GRANULOCYTE ABSOLUTE 0.04 K/uL (0-1); LYMPHOCYTES # (AUTO) 1.5 K/uL (1.0-4.8); LYMPHOCYTES % (AUTO) 11.9 % (21.0-51.0); MEAN CORPUSCULAR HGB CONC 31.9 g/dL (32.0-36.0); MEAN CORPUSCULAR VOLUME 94.1 fL (79-99); MONOCYTES # (AUTO) 1.2 K/uL (0.1-1.0); MONOCYTES % (AUTO) 9.1 % (3.0-13.0); NEUTROPHILS # (AUTO) 10.1 K/uL (1.8-7.7); NEUTROPHILS % (AUTO) 78.3 % (40.0-77.0); PLATELET COUNT (AUTO) 284 K/uL (130-400); RED BLOOD CELL COUNT(AUTO) 3.73 MIL/uL (4.00-5.50); RED CELL DISTRIBUTION WIDTH 15.2 % (11.0-15.5); WHITE BLOOD COUNT (AUTO) 12.8 K/uL (4.8-10.8)
[2024-03-04 03:42] LABS: CREATININE 2.3 mg/dL (0.5-1.0); POTASSIUM 4.2 mmol/L (3.5-5.1)
[2024-03-04 04:02] LABS: B-TYPE NATRIURETIC PEPTIDE 2300 pg/mL (0-100)
--- NOTE | 2024-03-04 08:30 | NUR ---
Nurse tommy Kay from [employer] called to follow up with patient as per Dr. Guillermo Pacheco. Update given. Orders to hold lasix until Dr. Pahceco rounds and CXR now. Dr. Pacheco to round later on this morning.
--- NOTE | 2024-03-04 10:26 | HMCIMG ---
CHEST 1VW REASON: chf COMPARISON: 03/01/2022 FINDINGS: There are stable cardiomegaly. There is are perihilar and bibasilar infiltrates which are stable to somewhat decreased. These appear most consistent with resolving vascular congestion. There are small bilateral pleural effusions. Bony thorax appears unremarkable. IMPRESSION: 1. Stable cardiomegaly with decreasing pulmonary vascular congestion.
[2024-03-04] MEDS: ISOSORBIDE MONO 30MG SR TAB PO ONE (12:48)
[2024-03-04] MEDS: cloPIDOgrel 75MG TAB PO SCH (12:49)
--- NOTE | 2024-03-04 12:49 | PN ---
[facility] PROGRESS NOTE Date Patient Seen: Mar 04, 2024 Time of Visit: 12:45 Supervising Physician: [Dr. Rivera] Primary Care Physician: Dr. 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 Blood pressure is 146/96 pulse is 78 respiratory rate is 14. T-max 99.0 patient is from room air sat 93%. Lab this morning with the bicarb 24 BUN is 60 and this is actually up from 54 yesterday creatinine is 2.2 up from 2.1 glucose 187 A1c is 8.1 lactic acid is 1.8. Liver function with AST down to 88 from 280 ALT is 287 down from 400. Troponin level is 607 and we can continue to trend this. In the meantime cardiology has been consulted. Aspirin, statin has been started. We will add anticoagulation with lovenox. COntinue to monitor closely. 03/03 patient is awake alert and oriented x3 lying down in bed resting not in acute distress, she denies shortness of breath remains on oxygen support at 2 L with sats 94%. Remarkable finding with the troponin level that is steady peak at 657 yesterday. Her kidney function with creatinine of 2.2 this is similar to yesterday. We are consulting her outpatient kidney specialist Dr. Osborne as requested from cardiology to mitigate contrast induce nephropathy. Continue with the current regimen with diuretic. Continue to monitor I's and O's. Continue with current antibiotic as well for pneumonia. We will discontinue s teroid given no indication for this. Continue with the breathing treatment. 03/04 blood pressure is 140/73 with a heart rate of 76, afebrile. Patient placed on 2 L NC. Had 900 mL of urine output overnight with a net fluid balance of-550 mL. WBC remains elevated at 12, hemoglobin 11, platelets 284. BMP shows stable creatinine at 2.3, no current electrolyte derangement. BNP remains elevated at 2300, patient continues on Lasix 40 b.i.d.. Her sputum culture is positive for E coli and Pseudomonas aeruginosa with multidrug resistance. We will adjust antibiotics accordingly. Her CXR today shows improved pulmonary vascular congestion. Patient is being followed by Cardiology who is recommending further cardiac workup in the next few days. She continues on full-dose Lovenox, renally adjusted for NSTEMI. REVIEW OF SYSTEMS: 12 point ROS reviewed with patient. Pertinent positives mentioned above. Otherwise negative. PHYSICAL EXAM: GENERAL: Alert, awake oriented x 3 HEENT: EOMI, Sclera non icteric, moist mucosa NECK: Supple, no JVD, trachea midline LUNGS: Breathing was even and unlabored. Upper lobes crackles, lower lobes di minished bilaterally. No wheezes. HEART: Regular rate and rhythm. Normal S1 and S2, without murmurs ABD: Abdomen soft, nontender. Bowel sounds present EXT: No clubbing cyanosis or +1 edema NEURO: Alert and oriented x3, follows commands, no neuro deficits noted. Vital Signs (last 8hr) Date Time Temp Pulse Resp B/P (MAP) Pulse Ox O2 Delivery O2 Flow Rate FiO2 03/04/24 11:02 75 19 03/04/24 08:33 140/73 03/04/24 08:00 96 Nasal Cannula* 2 28 03/04/24 08:00 98.1 76 19 140/73 96 Nasal Cannula 2.0 03/04/24 06:05 71 19 03/04/24 06:05 71 18 N/A Room Air 21 LABS: Hematology Labs: Test 03/04/24 03:18 Range/Units White Blood Count 12.8 H 4.8-10.8 K/uL Red Blood Count 3.73 L 4.00-5.50 MIL/uL Hemoglobin 11.2 L 12.0-16.0 g/dL Hematocrit 35.1 L 36-48 % Mean Corpuscular Volume 94.1 79-99 fL Mean Corpuscular Hemoglobin 30.0 27.0-33.0 pg Mean Corpuscular Hemoglobin Concent 31.9 L 32.0-36.0 g/dL Red Cell Distribution Width 15.2 11.0-15.5 % Platelet Count 284 130-400 K/uL Mean Platelet Volume 11.6 H 7.5-10.5 fL Immature Granulocyte % (Auto) 0.3 0-1 % Neutrophils (%) (Auto) 78.3 H 40.0-77.0 % Lymphocytes (%) (Auto) 11.9 L 21.0-51.0 % Monocytes (%) (Auto) 9.1 3.0-13.0 % Eosinophils (%) (Auto) 0.2 0.0-8.0 % Basophils (%) (Auto) 0.2 0.0-5.0 % Neutrophils # (Auto) 10.1 H 1.8-7.7 K/uL Lymphocytes # (Auto) 1.5 1.0-4.8 K/uL Monocytes # (Auto) 1.2 H 0.1-1.0 K/uL Eosinophils # (Auto) 0.02 0.00-0.70 K/uL Basophils # (Auto) 0.02 0.00-0.20 K/uL Absolute Immature Granulocyte (auto 0.04 0-1 K/uL Nucleated Red Blood Cells 0.0 0.0-0.19 % Chemistry Labs: Test 03/04/24 11:41 03/04/24 03:18 03/03/24 03:52 03/02/24 21:10 Range/Units Whole Blood Glucose 144 H 70-110 MG/DL Sodium Level 144 136-145 mmol/L Potassium Level 4.2 3.5-5.1 mmol/L Chloride Level 106 101-111 mmol/L Carbon Dioxide Level 30 21-32 mmol/L Blood Urea Nitrogen 66 H 7-18 mg/dL Creatinine 2.3 H 0.5-1.0 mg/dL Glomerular Filtration Rate Calc 22 >90 mL/min Random Glucose 162 H 70-105 mg/dL Total Calcium 8.1 L 8.5-10.1 mg/dL B-Type Natriuretic Peptide 2300 H 0-100 pg/mL Magnesium Level 3.00 H 1.80-2.40 mg/dL Troponin I High Sensitivity 522 *H 4-50 ng/L Test 03/02/24 16:21 Range/Units Bedside Glucose Comment Notified Nurse DIAGNOSTICS / RADIOLOGY RESULTS: CHEST 1VW REASON: chf COMPARISON: 03/01/2022 FINDINGS: There are stable cardiomegaly. There is are perihilar and bibasilar infiltrates which are stable to somewhat decreased. These appear most consistent with resolving vascular congestion. There are small bilateral pleural effusions. Bony thorax appears unremarkable. IMPRESSION: 1. Stable cardiomegaly with decreasing pulmonary vascular congestion. PLAN Stress test once CHF is improved per cardio Not a candidate for DIAMOND/ARB, ARNI, aldactone d/t elevated creatinine Monitor respiratory status closely. Continue oxygen therapy, titrate to keep SpO2 equal to greater than 92%. Continue nebulizer treatments. RT to provide IS and education on use. Robitussin DM as needed for cough. DC Solu-Medrol. Continue antibiotic therapy: ceftazidime Consult Cardiology and nephrology Trend troponins and EKGs. Fluid restriction a 1200 mL. Strict I&Os. Daily weights. Echo in a.m. heart clinic to read. [id number] mg p.o. daily. Atorvastatin 40 mg p.o. daily. Lasix 40 mg IV b.i.d. P.r.n. medications for: Pain, nausea, vomiting, constipation, hypertension Blood pressure checks every 4 hours and as needed. Reconcile home medications once available. Monitor renal and liver function. Monitor electrolytes and treat accordingly. A.m. labs: CBC, BNP, Mag, phos, TSH, A1c, troponin, GI and DVT prophylaxis. NEURO: Minimize central acting medications as possible. Maintain fall precautions, adequate lighting during the day PULMONARY: Supplemental 02 as needed. Maintain aspiration precautions at all times CARDIOVASCULAR: Follow hemodynamics. Vital signs per facility protocol GI & NUTRITION: Continue with nutritional support. Continue stool softeners and laxatives as needed. KIDNEYS & ELECTROLYTES: Strict monitoring of intake, output and overall fluid balance. Avoid nephrotoxic medications to the extent possible. Medications to be dosed according to renal function. Monitor electrolytes and replace as needed ENDOCRINE: Maintain blood glucose between 100-180 at all times. Hypoglycemia protocol in place INFECTIOUS DISEASE: Trend temperature, WBC and procalcitonin level Follow cultures, deescalate antibiotics as soon as possible. Panculture if new onset fever ONCOLOGY/HEMATOLOGY/COAGULATION: Monitor for s/s of bleeding Monitor hemoglobin, coagulation studies as needed SKIN: Pressure ulcer prevention per facility protocol Specialty mattress ORTHO/REHAB: Continue PT/OT Prophylaxis: Continue GI and DVT prophylaxis Code Status: Full Resuscitation Disposition: TBD TIME SPENT: >46 min ROSARIO DANIEL Mar 04, 2024 12:49
[2024-03-04] MEDS: furoSEMIDE 20MG VIAL IV SCH (12:57)
--- NOTE | 2024-03-04 12:58 | PN ---
[facility] PROGRESS NOTE Date Patient Seen: Mar 04, 2024 Time of Visit: 12:20 Interval History: This 73-year-old white female with a history of essential hypertension, hyperlipidemia, type 2 diabetes mellitus, stage III chronic renal insufficiency, and jpih-ib-xdgjlgwt aortic regurgitation has been lost to cardiac follow-up since approximately 02/22. At that time a 2D echo February 22, 2021 demonstrated an LVEF of 55-60%, moderate concentric LVH, stage II diastolic dysfunction, and kncu-hg-ddiueplc aortic regurgitation. She had been stable until one month prior to admission when she began noticing orthopnea and PND, and one week prior to admission when she began noticing progressive dyspnea on exertion culminating in respiratory distress prompting admission 03/03/2024. The patient was found to be in congestive heart failure with bilateral pleural effusions and basilar infiltrate. Her 12 lead EKG demonstrates evidence of an old anterior wall AL with QS complexes from V1 to V3 and a very small R-wave in V4. High sensitivity cardiac troponins were nonspecifically elevated at 657, 554, 464, and 522. A 2D echo here 03/02/2024 demonstrated anterior and apical moderate hypokinesis and mid and distal anteroseptal moderate hypokinesis with an LVEF of 40% and stage II diastolic dysfunction. In addition there was fefk-zc-zrakdgsu aortic regurgitation and severe pulmonary hypertension with an RV systolic pressure of 76 mm of mercury. Patient has had a 6 lb diuresis since admission 03/01/2024 and is now able to lie comfortably flat in bed. Chest x-ray today however demonstrates persistent bibasilar pleural effusions and CHF changes. Physical Examination: GENERAL: No acute distress. HEAD: Normal with no signs of head trauma. EYES: PERRLA, EOMI, conjunctiva and sclera normal. NECK: Supple without JVD. There is no tenderness, lymphadenopathy, or masses. No thyromegaly. Normal carotid upstrokes without bruits. LUNGS: There are diminished breath sounds at both bases and bibasilar rales. There are no expiratory wheezes are audible rhonchi. HEART: Normal rate and rhythm. Normal S1 and S2 without murmurs, gallop or rub. There is no diastolic murmur audible. VASC: Peripheral pulses +2 bilaterally. EXT: No clubbing, cyanosis or edema. NEURO: Awake, alert, and oriented x3. No focal neurological deficits noted. Laboratory: Hematology Labs: Test 03/04/24 03:18 Range/Units White Blood Count 12.8 H 4.8-10.8 K/uL Red Blood Count 3.73 L 4.00-5.50 MIL/uL Hemoglobin 11.2 L 12.0-16.0 g/dL Hematocrit 35.1 L 36-48 % Mean Corpuscular Volume 94.1 79-99 fL Mean Corpuscular Hemoglobin 30.0 27.0-33.0 pg Mean Corpuscular Hemoglobin Concent 31.9 L 32.0-36.0 g/dL Red Cell Distribution Width 15.2 11.0-15.5 % Platelet Count 284 130-400 K/uL Mean Platelet Volume 11.6 H 7.5-10.5 fL Immature Granulocyte % (Auto) 0.3 0-1 % Neutrophils (%) (Auto) 78.3 H 40.0-77.0 % Lymphocytes (%) (Auto) 11.9 L 21.0-51.0 % Monocytes (%) (Auto) 9.1 3.0-13.0 % Eosinophils (%) (Auto) 0.2 0.0-8.0 % Basophils (%) (Auto) 0.2 0.0-5.0 % Neutrophils # (Auto) 10.1 H 1.8-7.7 K/uL Lymphocytes # (Auto) 1.5 1.0-4.8 K/uL Monocytes # (Auto) 1.2 H 0.1-1.0 K/uL Eosinophils # (Auto) 0.02 0.00-0.70 K/uL Basophils # (Auto) 0.02 0.00-0.20 K/uL Absolute Immature Granulocyte (auto 0.04 0-1 K/uL Nucleated Red Blood Cells 0.0 0.0-0.19 % Chemistry Labs: Test 03/04/24 11:41 03/04/24 03:18 03/03/24 03:52 03/02/24 21:10 Range/Units Whole Blood Glucose 144 H 70-110 MG/DL Sodium Level 144 136-145 mmol/L Potassium Level 4.2 3.5-5.1 mmol/L Chloride Level 106 101-111 mmol/L Carbon Dioxide Level 30 21-32 mmol/L Blood Urea Nitrogen 66 H 7-18 mg/dL Creatinine 2.3 H 0.5-1.0 mg/dL Glomerular Filtration Rate Calc 22 >90 mL/min Random Glucose 162 H 70-105 mg/dL Total Calcium 8.1 L 8.5-10.1 mg/dL B-Type Natriuretic Peptide 2300 H 0-100 pg/mL Magnesium Level 3.00 H 1.80-2.40 mg/dL Troponin I High Sensitivity 522 *H 4-50 ng/L Test 03/02/24 16:21 Range/Units Bedside Glucose Comment Notified Nurse Diagnostics / Radiology: 2D echo 03/02/2024: Conclusion LVEF is 40% Stage II diastolic dysfunction. Mid and distal anteroseptal hypokinesis moderate Moderate anterior and apical hypokinesis noted Mild-moderate aortic insufficiency Mild-moderate tricuspid valve regurgitation noted. Right ventricular systolic pressure is estimage at 76mmHg consistent with moderate-severe pulmonary hypertension DICTATED BY: CHEYENNE FRANCIS MD DATE: 03/02/24 1114 Impression and Plan: Acute HFmrEF, symptom onset one month ago: Fxyg-cw-illklwhp ischemic cardiomyopathy with LVEF of 40% by 2D echo 03/02/2024 with stage II diastolic dysfunction, with prior 2D echocardiogram February 22, 2021 demonstrating a normal LVEF of 55-60%: Vssk-yz-bzewvckf aortic regurgitation by 2D echo 03/02/2024 and by prior remote 2D echocardiogram February 22, 2021: -patient has stage IV chronic renal insufficiency (previously stage III), limit ing use of DIAMOND/ARB/ARNI therapy and mineralocorticoid antagonists -continue her chronic home carvedilol 6.25 p.o. b.i.d. -begin combination of hydralazine 25 t.i.d. plus nitrates with isosorbide mono ER 30 mg daily -avoid hypotension -possible contribution of cardiorenal syndrome Presumed underlying coronary artery disease: Old anterior wall AL on EKG current admission: Anteroapical moderate hypokinesis by 2D echo 03/02/2024: Nonspecific troponin elevation of 657>>> 554>>> 464>>> 522 in the setting of congestive heart failure: -begin atorvastatin 40 mg daily -begin dual antiplatelet therapy with aspirin and clopidogrel -proceed with a Lexiscan Cardiolite stress test once CHF resolves [place]-sf-jfpnnhnt aortic regurgitation by 2D echo 03/02/2024 and by prior remote 2D echocardiogram February 22, 2021: -this does not appear worse by comparison of echo reports and her current decompensation appears to be due to the development of an intercurrent myocardial infarction since her prior remote echo in 2020. Acute on chronic renal insufficiency, previously stage III, currently stage IV: -avoid nephrotoxins -prefer to proceed with a noninvasive ischemic evaluation to avoid nephrotoxicity -not a candidate for DIAMOND/ARB/ARNI therapy and mineralocorticoid antagonists given stage IV chronic renal insufficiency -her sanforizer Dr. Zoila Castillo is following with us Comorbidities: Type 2 diabetes mellitus with circulatory and renal manifestations Hyperlipidemia Essential hypertension ANNIE DAVIS MD Mar 04, 2024 12:58
[2024-03-04] MEDS: cefTAZidime PENTAHYDRATE 2 GM/VIAL IVPB SCH (12:59)
[2024-03-04] MEDS ORDERED: furoSEMIDE 40MG VIAL IV SCH (13:00)
[2024-03-04] MEDS: hydrALAZine 25MG TABLET PO SCH (13:44)
[2024-03-05] VITALS (15 sets, daily range): BP systolic 136–157; BP diastolic 67–81; PULSE 75–100; RESP 16–19; TEMP 97.7–99.2; O2SAT 92–97
[2024-03-05 05:06] LABS: BASOPHILS # (AUTO) 0.03 K/uL (0.00-0.20); BASOPHILS % (AUTO) 0.3 % (0.0-5.0); EOSINOPHILS # (AUTO) 0.45 K/uL (0.00-0.70); EOSINOPHILS % (AUTO) 4.4 % (0.0-8.0); HEMATOCRIT 36.4 % (36-48); IMMATURE GRANULOCYTE ABSOLUTE 0.05 K/uL (0-1); LYMPHOCYTES # (AUTO) 1.3 K/uL (1.0-4.8); LYMPHOCYTES % (AUTO) 12.3 % (21.0-51.0); MEAN CORPUSCULAR HEMOGLOBIN 29.8 pg (27.0-33.0); MEAN CORPUSCULAR HGB CONC 31.6 g/dL (32.0-36.0); MEAN CORPUSCULAR VOLUME 94.3 fL (79-99); MONOCYTES # (AUTO) 0.9 K/uL (0.1-1.0); MONOCYTES % (AUTO) 9.2 % (3.0-13.0); NEUTROPHILS # (AUTO) 7.5 K/uL (1.8-7.7); NEUTROPHILS % (AUTO) 73.3 % (40.0-77.0); PLATELET COUNT (AUTO) 243 K/uL (130-400); RED BLOOD CELL COUNT(AUTO) 3.86 MIL/uL (4.00-5.50); RED CELL DISTRIBUTION WIDTH 14.8 % (11.0-15.5); WHITE BLOOD COUNT (AUTO) 10.3 K/uL (4.8-10.8)
[2024-03-05 05:27] LABS: CREATININE 2.2 mg/dL (0.5-1.0); MAGNESIUM 2.2 mg/dL (1.80-2.40); POTASSIUM 4.3 mmol/L (3.5-5.1)
[2024-03-05 06:11] LABS: B-TYPE NATRIURETIC PEPTIDE 2320 pg/mL (0-100)
[2024-03-05] MEDS: ENOXAPARIN SODIUM 30 MG/0.3 ML SQ SCH (09:00)
--- NOTE | 2024-03-05 10:01 | PN ---
[facility] PROGRESS NOTE Date Patient Seen: Mar 05, 2024 Time of Visit: 09:55 Interval History: This 73-year-old white female with a history of essential hypertension, hyperlipidemia, type 2 diabetes mellitus, stage III chronic renal insufficiency, and uwkv-mn-jyudqlsw aortic regurgitation has been lost to cardiac follow-up since approximately 02/22. At that time a 2D echo February 22, 2021 demonstrated an LVEF of 55-60%, moderate concentric LVH, stage II diastolic dysfunction, and ypvo-kr-dpabuvoe aortic regurgitation. She had been stable until one month prior to admission when she began noticing orthopnea and PND, and one week prior to admission when she began noticing progressive dyspnea on exertion culminating in respiratory distress prompting admission 03/03/2024. The patient was found to be in congestive heart failure with bilateral pleural effusions and basilar infiltrate. Her 12 lead EKG demonstrates evidence of an old anterior wall VA with QS complexes from V1 to V3 and a very small R-wave in V4. High sensitivity cardiac troponins were nonspecifically elevated at 657, 554, 464, and 522. A 2D echo here 03/02/2024 demonstrated anterior and apical moderate hypokinesis and mid and distal anteroseptal moderate hypokinesis with an LVEF of 40% and stage II diastolic dysfunction. In addition there was nnyw-bm-wwmnrgqt aortic regurgitation and severe pulmonary hypertension with an RV systolic pressure of 76 mm of mercury. Patient has had a 6 lb diuresis since admission 03/01/2024 and is now able to lie comfortably flat in bed. Her chest x-ray 03/04/2024 demonstrated continued CHF changes and furosemide was reduced from 40 IV q.12 to 20 mg IV q.12 hours. We plan a follow-up chest x-ray tomorrow morning. Discharge planning for 03/07/2024. Physical Examination: GENERAL: No acute distress. HEAD: Normal with no signs of head trauma. EYES: PERRLA, EOMI, conjunctiva and sclera normal. NECK: Supple without JVD. There is no tenderness, lymphadenopathy, or masses. No thyromegaly. Normal carotid upstrokes without bruits. LUNGS: There are diminished breath sounds at both bases and bibasilar rales [address] chest[address] There are no expiratory wheezes are audible rhonchi. HEART: Normal rate and rhythm. Normal S1 and S2 without murmurs, gallop or rub. There is no diastolic murmur audible. VASC: Peripheral pulses +2 bilaterally. EXT: No clubbing, cyanosis or edema. NEURO: Awake, alert, and oriented x3. No focal neurological deficits noted. Laboratory: Hematology Labs: Test 03/05/24 04:43 Range/Units White Blood Count 10.3 4.8-10.8 K/uL Red Blood Count 3.86 L 4.00-5.50 MIL/uL Hemoglobin 11.5 L 12.0-16.0 g/dL Hematocrit 36.4 36-48 % Mean Corpuscular Volume 94.3 79-99 fL Mean Corpuscular Hemoglobin 29.8 27.0-33.0 pg Mean Corpuscular Hemoglobin Concent 31.6 L 32.0-36.0 g/dL Red Cell Distribution Width 14.8 11.0-15.5 % Platelet Count 243 130-400 K/uL Mean Platelet Volume 11.3 H 7.5-10.5 fL Immature Granulocyte % (Auto) 0.5 0-1 % Neutrophils (%) (Auto) 73.3 40.0-77.0 % Lymphocytes (%) (Auto) 12.3 L 21.0-51.0 % Monocytes (%) (Auto) 9.2 3.0-13.0 % Eosinophils (%) (Auto) 4.4 0.0-8.0 % Basophils (%) (Auto) 0.3 0.0-5.0 % Neutrophils # (Auto) 7.5 1.8-7.7 K/uL Lymphocytes # (Auto) 1.3 1.0-4.8 K/uL Monocytes # (Auto) 0.9 0.1-1.0 K/uL Eosinophils # (Auto) 0.45 0.00-0.70 K/uL Basophils # (Auto) 0.03 0.00-0.20 K/uL Absolute Immature Granulocyte (auto 0.05 0-1 K/uL Nucleated Red Blood Cells 0.0 0.0-0.19 % Chemistry Labs: Test 03/05/24 05:21 03/05/24 04:43 Range/Units Whole Blood Glucose 216 H 70-110 MG/DL Sodium Level 144 136-145 mmol/L Potassium Level 4.3 3.5-5.1 mmol/L Chloride Level 104 101-111 mmol/L Carbon Dioxide Level 28 21-32 mmol/L Blood Urea Nitrogen 60 H 7-18 mg/dL Creatinine 2.2 H 0.5-1.0 mg/dL Glomerular Filtration Rate Calc 23 >90 mL/min Random Glucose 202 H 70-105 mg/dL Total Calcium 8.3 L 8.5-10.1 mg/dL Magnesium Level 2.20 1.80-2.40 mg/dL B-Type Natriuretic Peptide 2320 H 0-100 pg/mL Triglycerides Level 131 30-200 mg/dL Cholesterol Level 100 <200 mg/dL LDL Cholesterol 39 0-99 mg/dL HDL Cholesterol 47 35-85 mg/dL Diagnostics / Radiology: 2D echo 03/02/2024: Conclusion LVEF is 40% Stage II diastolic dysfunction. Mid and distal anteroseptal hypokinesis moderate Moderate anterior and apical hypokinesis noted Mild-moderate aortic insufficiency Mild-moderate tricuspid valve regurgitation noted. Right ventricular systolic pressure is estimage at 76mmHg consistent with moderate-severe pulmonary hypertension DICTATED BY: CHEYENNE FRANCIS MD DATE: 03/02/241113 Impression and Plan: Acute HFmrEF, symptom onset one month ago: Mzvr-yg-drmjrczp ischemic cardiomyopathy with LVEF of 40% by 2D echo 03/02/2024 with stage II diastolic dysfunction, with prior 2D echocardiogram February 22, 2021 demonstrating a normal LVEF of 55-60%: Pvqn-pg-dfvgwikj aortic regurgitation by 2D echo 03/02/2024 and by prior remote 2D echocardiogram February 22, 2021: - patient has stage IV chronic renal insufficiency (previously stage III), limiting use of DIAMOND/ARB/ARNI therapy and mineralocorticoid antagonists - continue her chronic home carvedilol 6.25 p.o. b.i.d. - tolerating her newly initiated hydralazine 25 t.i.d., plus nitrates with isosorbide mono ER 30 mg daily - possible contribution of cardiorenal syndrome - discharge planning for 03/07/2024 Presumed underlying coronary artery disease: Old anterior wall VA on EKG current admission: Anteroapical moderate hypokinesis by 2D echo 03/02/2024: Nonspecific troponin elevation of 657>>> 554>>> 464>>> 522 in the setting of congestive heart failure: - begin atorvastatin 40 mg daily - begin dual antiplatelet therapy with aspirin and clopidogrel - a Lexiscan Cardiolite stress test is pending today Fszi-hd-lqjfuqeb aortic regurgitation by 2D echo 03/02/2024 and by prior remote 2D echocardiogram February 22, 2021: - her valvular aortic regurgitation does not appear worse by comparison of echo reports, and her current decompensation appears to be due to the development of an intercurrent myocardial infarction since her prior remote echo in 2020. Acute on chronic renal insufficiency, previously stage III, currently stage IV: - avoid nephrotoxins - prefer to proceed with a noninvasive ischemic evaluation to avoid nephrotoxicity - not a candidate for DIAMOND/ARB/ARNI therapy and mineralocorticoid antagonists given stage IV chronic renal insufficiency - her manager spanish Dr. Zoila Castillo is following with us Comorbidities: Type 2 diabetes mellitus with circulatory and renal manifestations Hyperlipidemia Essential hypertension ANNIE DAVIS MD Mar 05, 2024 10:01
[2024-03-05] MEDS: REGADENOSON 0.4 MG/5 ML PF SYG IVP SCH (12:28)
[2024-03-05] MEDS: ondanSETRON 4MG INJ IV PRN (12:51)
--- NOTE | 2024-03-05 13:54 | NUR ---
nurse notes holding medications until stress test complete
--- NOTE | 2024-03-05 14:42 | PN ---
[facility] PROGRESS NOTE Date Patient Seen: Mar 05, 2024 Time of Visit: 14:42 Supervising Physician: Dr. Carloz Rivera Primary Care Physician: Dr. 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% Ischemic cardiomyopathy Community acquired pneumonia, POA, ecoli and pseudomonas on sputum culture, MDRO Acute renal failure secondary to ATN on chronic kidney disease Hyperglycemia in the setting of type 2 DM Hypocalcemia, POA Hypomagnesemia Anemia of chronic disease Hypoalbuminemia Elevated D-dimer, PE was ruled out via CTA chest Chronic problem list: Hypertension, hyperlipidemia, diabetes mellitus type 2 INTERVAL HISTORY: Patient was evaluated sitting in her chair at bedside, currently on room air, she has just returned from her stress test, patient stated she was fine during and after the test however now that she has arrived to her room she states she feels nauseous. Patient has been cleared for a diet by Cardiology which has been ordered at this time. Ordering the patient Zofran as well to aid with nausea. Patient's creatinine is slightly elevated to 2.2 today, white count is 10.3, the remainder of her blood work appears unremarkable. She continues on ceftazidime at this time for E coli and Pseudomonas her sputum culture, we will follow up with the patient as soon as we have her cardiac stress test. Plan Pending stress test report Continue antibiotics Follow morning labs Patient was cleared for diet, pending Zofran administration for nausea REVIEW OF SYSTEMS: 12 point ROS reviewed with patient. Pertinent positives mentioned above. Otherwise negative. PHYSICAL EXAM: GENERAL: Alert, awake oriented x 3 HEENT: EOMI, Sclera non icteric, moist mucosa NECK: Supple, no JVD, trachea midline LUNGS: Breathing was even and unlabored. Upper lobes crackles, lower lobes diminished bilaterally. No wheezes. HEART: Regular rate and rhythm. Normal S1 and S2, without murmurs ABD: Abdomen soft, nontender. Bowel sounds present EXT: No clubbing cyanosis or +1 edema NEURO: Alert and oriented x3, follows commands, no neuro deficits noted. Vital Signs (last 8hr) Date Time Temp Pulse Resp B/P (MAP) Pulse Ox O2 Delivery O2 Flow Rate FiO2 03/05/24 13:25 96 18 N/A Room Air 2.0 28 03/05/24 13:23 96 18 03/05/24 11:26 98.6 85 16 154/81 91 03/05/24 08:01 98.4 85 18 157/80 89 03/05/24 08:00 92 Nasal Cannula* 2 28 LABS: Hematology Labs: Test 03/05/24 04:43 Range/Units White Blood Count 10.3 4.8-10.8 K/uL Red Blood Count 3.86 L 4.00-5.50 MIL/uL Hemoglobin 11.5 L 12.0-16.0 g/dL Hematocrit 36.4 36-48 % Mean Corpuscular Volume 94.3 79-99 fL Mean Corpuscular Hemoglobin 29.8 27.0-33.0 pg Mean Corpuscular Hemoglobin Concent 31.6 L 32.0-36.0 g/dL Red Cell Distribution Width 14.8 11.0-15.5 % Platelet Count 243 130-400 K/uL Mean Platelet Volume 11.3 H 7.5-10.5 fL Immature Granulocyte % (Auto) 0.5 0-1 % Neutrophils (%) (Auto) 73.3 40.0-77.0 % Lymphocytes (%) (Auto) 12.3 L 21.0-51.0 % Monocytes (%) (Auto) 9.2 3.0-13.0 % Eosinophils (%) (Auto) 4.4 0.0-8.0 % Basophils (%) (Auto) 0.3 0.0-5.0 % Neutrophils # (Auto) 7.5 1.8-7.7 K/uL Lymphocytes # (Auto) 1.3 1.0-4.8 K/uL Monocytes # (Auto) 0.9 0.1-1.0 K/uL Eosinophils # (Auto) 0.45 0.00-0.70 K/uL Basophils # (Auto) 0.03 0.00-0.20 K/uL Absolute Immature Granulocyte (auto 0.05 0-1 K/uL Nucleated Red Blood Cells 0.0 0.0-0.19 % Chemistry Labs: Test 03/05/24 10:45 03/05/24 04:43 Range/Units Whole Blood Glucose 163 H 70-110 MG/DL Sodium Level 144 136-145 mmol/L Potassium Level 4.3 3.5-5.1 mmol/L Chloride Level 104 101-111 mmol/L Carbon Dioxide Level 28 21-32 mmol/L Blood Urea Nitrogen 60 H 7-18 mg/dL Creatinine 2.2 H 0.5-1.0 mg/dL Glomerular Filtration Rate Calc 23 >90 mL/min Random Glucose 202 H 70-105 mg/dL Total Calcium 8.3 L 8.5-10.1 mg/dL Magnesium Level 2.20 1.80-2.40 mg/dL B-Type Natriuretic Peptide 2320 H 0-100 pg/mL Triglycerides Level 131 30-200 mg/dL Cholesterol Level 100 <200 mg/dL LDL Cholesterol 39 0-99 mg/dL HDL Cholesterol 47 35-85 mg/dL DIAGNOSTICS / RADIOLOGY RESULTS: [ ] PLAN Stress test once CHF is improved per cardio Not a candidate for DIAMOND/ARB, ARNI, aldactone d/t elevated creatinine Monitor respiratory status closely. Continue oxygen therapy, titrate to keep SpO2 equal to greater than 92%. Continue nebulizer treatments. RT to provide IS and education on use. Robitussin DM as needed for cough. DC Solu-Medrol. Continue antibiotic therapy: ceftazidime Consult Cardiology and nephrology Trend troponins and EKGs. Fluid restriction a 1200 mL. Strict I&Os. Daily weights. Echo in [facility] heart clinic to read. [id number] mg p.o. daily. Atorvastatin 40 mg p.o. daily. Lasix 40 mg IV b.i.d. P.r.n. medications for: Pain, nausea, vomiting, constipation, hypertension Blood pressure checks every 4 hours and as needed. Reconcile home medications once available. Monitor renal and liver function. Monitor electrolytes and treat accordingly. A.m. labs: CBC, BNP, Mag, phos, TSH, A1c, troponin, GI and DVT prophylaxis. NEURO: Minimize central acting medications as possible. Maintain fall precautions, adequate lighting during the day PULMONARY: Supplemental 02 as needed. Maintain aspiration precautions at all times CARDIOVASCULAR: Follow hemodynamics. Vital signs per facility protocol GI & NUTRITION: Continue with nutritional support. Continue stool softeners and laxatives as needed. KIDNEYS & ELECTROLYTES: Strict monitoring of intake, output and overall fluid balance. Avoid nephrotoxic medications to the extent possible. Medications to be dosed according to renal function. Monitor electrolytes and replace as needed ENDOCRINE: Maintain blood glucose between 100-180 at all times. Hypoglycemia protocol in place INFECTIOUS DISEASE: Trend temperature, WBC and procalcitonin level Follow cultures, deescalate antibiotics as soon as possible. Panculture if new onset fever ONCOLOGY/HEMATOLOGY/COAGULATION: Monitor for s/s of bleeding Monitor hemoglobin, coagulation studies as needed SKIN: Pressure ulcer prevention per facility protocol Specialty mattress ORTHO/REHAB: Continue PT/OT Prophylaxis: Continue GI and DVT prophylaxis Code Status: Full Resuscitation Disposition: TBD TIME SPENT: >46 min AMAURY RAY Mar 05, 2024 14:42
--- NOTE | 2024-03-05 18:17 | HMCSR ---
APPROVED REPORT TEST INDICATIONS CAD The imaging protocol used to acquire images was Rest Tc-99m/stress Tc-99m 1 day Consent: The procedure was explained and understood by the patient. Informerd consent was witnessed SABRINA Kurtz First, low dose rest was performed then high dose stress. RESTING DATA: The resting ekg shows: NSR Rest SPECT myocardial perfusion imaging was performed in supine position minutes following the intra venous injection of 10 mCi of Tc-99 Sestamibi. Time of rest injection: 1030 Date: 03/05/2024 PHARMACOLOGIC STRESS: Pharmacologic stress test was performed by injecting regadenoson 0.4 mg IV push followed by the intra venous injection of 26 mCi of Tc-99 Sestamibi. Time of stress injection: 1230 Date: 03/05/2024 Heart Rate at time of stress injection: 89 bpm. The images were gated to evaluate regional wall motion and calculate left ventricular ejection fracti on. STRESS DETAILS Reason for Termination: Infusion complete Stress Symptoms: Dyspnea Max HR Achieved: 97 bpm % of APMHR Achieved: 78 Max Blood Pressure: 140/63 mmHg Stress ECG: NSR Conclusion Anterior, apical, inferior ans septal infarct No ischemia LV ejection fraction 26% Diffuse severe LV hypokinesis Dilated LV at rest and stress No increased lung uptake
[2024-03-05] MEDS: acetaMINOPHEN 325 MG TAB PO PRN (19:57)
[2024-03-05] MEDS: guaiFENesin SUGAR-FREE 100 MG/5 ML UDCUP PO PRN (19:57)
[2024-03-06] VITALS (14 sets, daily range): BP systolic 104–142; BP diastolic 48–69; PULSE 75–91; RESP 16–22; TEMP 98.1–98.5; O2SAT 92–95
[2024-03-06 04:49] LABS: BASOPHILS # (AUTO) 0.03 K/uL (0.00-0.20); BASOPHILS % (AUTO) 0.3 % (0.0-5.0); EOSINOPHILS # (AUTO) 0.22 K/uL (0.00-0.70); EOSINOPHILS % (AUTO) 2.4 % (0.0-8.0); HEMATOCRIT 37.8 % (36-48); IMMATURE GRANULOCYTE ABSOLUTE 0.03 K/uL (0-1); LYMPHOCYTES # (AUTO) 0.5 K/uL (1.0-4.8); LYMPHOCYTES % (AUTO) 5.6 % (21.0-51.0); MEAN CORPUSCULAR HGB CONC 32.3 g/dL (32.0-36.0); MEAN CORPUSCULAR VOLUME 92.9 fL (79-99); MONOCYTES # (AUTO) 0.8 K/uL (0.1-1.0); MONOCYTES % (AUTO) 8.3 % (3.0-13.0); NEUTROPHILS # (AUTO) 7.7 K/uL (1.8-7.7); NEUTROPHILS % (AUTO) 83.1 % (40.0-77.0); PLATELET COUNT (AUTO) 260 K/uL (130-400); RED BLOOD CELL COUNT(AUTO) 4.07 MIL/uL (4.00-5.50); RED CELL DISTRIBUTION WIDTH 14.5 % (11.0-15.5); WHITE BLOOD COUNT (AUTO) 9.3 K/uL (4.8-10.8)
[2024-03-06 04:58] LABS: CREATININE 2.2 mg/dL (0.5-1.0); POTASSIUM 4.3 mmol/L (3.5-5.1)
[2024-03-06 05:12] LABS: B-TYPE NATRIURETIC PEPTIDE 3080 pg/mL (0-100)
--- NOTE | 2024-03-06 08:51 | HMCIMG ---
PORTABLE CHEST RADIOGRAPH INDICATION: CHF COMPARISON: 03/04/2024 FINDINGS: monitoring analyst leads overlie the field of view. Heart size is normal. Mild calcific plaque is present along the aortic arch johnson. The pulmonary vascularity and arturo appear normal. Both costophrenic angles are slightly blunted and subjacent linear opacities without consolidation. No pneumothorax detected. IMPRESSION: Small bilateral pleural effusions with subjacent passive atelectasis, but no evidence for pulmonary vascular congestion or cardiomegaly.
--- NOTE | 2024-03-06 09:26 | PN ---
[facility] CARDIOLOGY PROGRESS NOTE Date Patient Seen: Mar 06, 2024 Time of Visit: 09:23 Problem List: Acute HFmrEF CKD IV Interval History: Patient reports cough No significant improvement during hospitalization Denies shortness of breath, orthopnea or PND Denies palpitations. Physical Examination: GENERAL: [No acute distress.] HEAD: [Normal with no signs of head trauma.] NECK: [ormal carotid upstrokes without bruits.] LUNGS: [on room air. no distress. mild Left basilar rales.. No wheezes, or rhonchi.] HEART: [Normal rate and rhythm. Normal S1 and S2 without murmurs, gallop or rub.] VASC: [Peripheral pulses +2 bilaterally.] ABD: [soft, nondistended] EXT: [No cyanosis or edema.] SKIN: [warm, dry NEURO: [Awake, alert, and oriented x3. No focal sensory or strength deficits noted.] Laboratory: [ ] Hematology Labs: Test 03/06/24 03:20 Range/Units White Blood Count 9.3 4.8-10.8 K/uL Red Blood Count 4.07 4.00-5.50 MIL/uL Hemoglobin 12.2 12.0-16.0 g/dL Hematocrit 37.8 36-48 % Mean Corpuscular Volume 92.9 79-99 fL Mean Corpuscular Hemoglobin 30.0 27.0-33.0 pg Mean Corpuscular Hemoglobin Concent 32.3 32.0-36.0 g/dL Red Cell Distribution Width 14.5 11.0-15.5 % Platelet Count 260 130-400 K/uL Mean Platelet Volume 11.5 H 7.5-10.5 fL Immature Granulocyte % (Auto) 0.3 0-1 % Neutrophils (%) (Auto) 83.1 H 40.0-77.0 % Lymphocytes (%) (Auto) 5.6 L 21.0-51.0 % Monocytes (%) (Auto) 8.3 3.0-13.0 % Eosinophils (%) (Auto) 2.4 0.0-8.0 % Basophils (%) (Auto) 0.3 0.0-5.0 % Neutrophils # (Auto) 7.7 1.8-7.7 K/uL Lymphocytes # (Auto) 0.5 L 1.0-4.8 K/uL Monocytes # (Auto) 0.8 0.1-1.0 K/uL Eosinophils # (Auto) 0.22 0.00-0.70 K/uL Basophils # (Auto) 0.03 0.00-0.20 K/uL Absolute Immature Granulocyte (auto 0.03 0-1 K/uL Nucleated Red Blood Cells 0.0 0.0-0.19 % Chemistry Labs: Test 03/06/24 05:52 03/06/24 03:20 03/05/24 04:43 Range/Units Whole Blood Glucose 125 H 70-110 MG/DL Bedside Glucose Comment Notified Nurse Sodium Level 141 136-145 mmol/L Potassium Level 4.3 3.5-5.1 mmol/L Chloride Level 102 101-111 mmol/L Carbon Dioxide Level 31 21-32 mmol/L Blood Urea Nitrogen 55 H 7-18 mg/dL Creatinine 2.2 H 0.5-1.0 mg/dL Glomerular Filtration Rate Calc 23 >90 mL/min Random Glucose 127 H 70-105 mg/dL Total Calcium 8.5 8.5-10.1 mg/dL B-Type Natriuretic Peptide 3080 H 0-100 pg/mL Magnesium Level 2.20 1.80-2.40 mg/dL Triglycerides Level 131 30-200 mg/dL Cholesterol Level 100 <200 mg/dL LDL Cholesterol 39 0-99 mg/dL HDL Cholesterol 47 35-85 mg/dL Diagnostics / Radiology: Conclusion Anterior, apical, inferior ans septal infarct No ischemia LV ejection fraction 26% Diffuse severe LV hypokinesis Dilated LV at rest and stress No increased lung uptake DICTATED BY: CINDY LUO MD DATE: 03/05/24 1055 Impression and Plan: Acute HFmrEF, symptom onset one month ago: [id number] ischemic cardiomyopathy with LVEF of 40% by 2D echo 03/02/2024 with stage II diastolic dysfunction, with prior 2D echocardiogram February 22, 2021 demonstrating a normal LVEF of 55-60%: [id number] aortic regurgitation by 2D echo 03/02/2024 and by prior remote 2D echocardiogram February 22, 2021: - patient has stage IV chronic renal insufficiency (previously stage III), limiting use of GDMT - tolerating her newly initiated hydralazine 25 t.i.d., plus nitrates with isosorbide mono ER 30 mg daily - possible contribution of cardiorenal syndrome - Continue carvedilol, however it appears she can tolerate increased dosing. We are limited in the other GDMT for CHF due to her impaired renal function. Will increase carvedilol to 12.5 mg PO BID and assess response. - discharge planning for 03/07/2024 Presumed underlying coronary artery disease: Old anterior wall IN on EKG current admission: Anteroapical moderate hypokinesis by 2D echo 03/02/2024: Nonspecific troponin elevation of 657>>> 554>>> 464>>> 522 in the setting of CHF: - atorvastatin 40 mg daily - Dual antiplatelet therapy with aspirin and clopidogrel - Lexiscan Cardiolite stress test shows prior infarct, no ischemia. [id number] aortic regurgitation by 2D echo 03/02/2024 and by prior remote 2D echocardiogram February 22, 2021: - her valvular aortic regurgitation does not appear worse by comparison of echo reports, and her current decompensation appears to be due to the development of an intercurrent myocardial infarction since her prior remote echo in 2020. Acute on chronic renal insufficiency, previously stage III, currently stage IV: - not a candidate for DIAMOND/ARB/ARNI therapy, SGLT2i, MRA - her gis software developer Dr. 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
[2024-03-06] MEDS: carVEDIlol 12.5 MG TABLET PO ONE (09:54)
[2024-03-06] MEDS: polyETHYLene GLYCol 3350 17 GM POWD.PACK PO PRN (09:58)
[2024-03-06] MEDS: acetaMINOPHEN 325 MG TAB PO PRN (10:02)
--- NOTE | 2024-03-06 15:59 | PN ---
[facility] PROGRESS NOTE Date Patient Seen: Mar 06, 2024 Time of Visit: 15:55 Supervising Physician: Dr. Keith Carney Primary Care Physician: Dr. 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 At this time carvedilol has been increased to 12.5 mg p.o. b.i.d. with wishes to hold the patient overnight to assess her response. Tentative discharge is tomorrow 03/07/2024. Patient was seen at sitting in her chair at bedside, currently on room air in no acute distress, patient denies any pain discomfort or shortness of breath, no nausea or vomiting and patient was had regular bowel movements. She continues on ceftazidime at this time, white count today within normal limits at 9.3, renal function remains elevated however this appears to be the patient's baseline. We will continue to monitor her progress and follow cardiology recommendations regarding the patient's disposition. Plan Pending final recommendations from Cardiology Continue carvedilol 12.5 mg p.o. b.i.d. per Cardiology recommendations Continue ceftazidime Continue supplemental O2 if needed REVIEW OF SYSTEMS: 12 point ROS reviewed with patient. Pertinent positives mentioned above. Otherwise negative. PHYSICAL EXAM: GENERAL: Alert, awake oriented x 3 HEENT: EOMI, Sclera non icteric, moist mucosa NECK: Supple, no JVD, trachea midline LUNGS: Breathing was even and unlabored. Upper lobes crackles, lower lobes diminished bilaterally. No wheezes. HEART: Regular rate and rhythm. Normal S1 and S2, without murmurs ABD: Abdomen soft, nontender. Bowel sounds present EXT: No clubbing cyanosis or +1 edema NEURO: Alert and oriented x3, follows commands, no neuro deficits noted. Vital Signs (last 8hr) Date Time Temp Pulse Resp B/P (MAP) Pulse Ox O2 Delivery O2 Flow Rate FiO2 03/06/24 12:00 98.2 76 18 109/48 91 Room Air 03/06/24 11:03 79 18 03/06/24 11:03 79 18 N/A Room Air 21 03/06/24 09:54 142/63 03/06/24 08:00 98.2 91 18 142/63 92 Room Air 03/06/24 08:00 92 Nasal Cannula* 2 28 LABS: Hematology Labs: Test 03/06/24 03:20 Range/Units White Blood Count 9.3 4.8-10.8 K/uL Red Blood Count 4.07 4.00-5.50 MIL/uL Hemoglobin 12.2 12.0-16.0 g/dL Hematocrit 37.8 36-48 % Mean Corpuscular Volume 92.9 79-99 fL Mean Corpuscular Hemoglobin 30.0 27.0-33.0 pg Mean Corpuscular Hemoglobin Concent 32.3 32.0-36.0 g/dL Red Cell Distribution Width 14.5 11.0-15.5 % Platelet Count 260 130-400 K/uL Mean Platelet Volume 11.5 H 7.5-10.5 fL Immature Granulocyte % (Auto) 0.3 0-1 % Neutrophils (%) (Auto) 83.1 H 40.0-77.0 % Lymphocytes (%) (Auto) 5.6 L 21.0-51.0 % Monocytes (%) (Auto) 8.3 3.0-13.0 % Eosinophils (%) (Auto) 2.4 0.0-8.0 % Basophils (%) (Auto) 0.3 0.0-5.0 % Neutrophils # (Auto) 7.7 1.8-7.7 K/uL Lymphocytes # (Auto) 0.5 L 1.0-4.8 K/uL Monocytes # (Auto) 0.8 0.1-1.0 K/uL Eosinophils # (Auto) 0.22 0.00-0.70 K/uL Basophils # (Auto) 0.03 0.00-0.20 K/uL Absolute Immature Granulocyte (auto 0.03 0-1 K/uL Nucleated Red Blood Cells 0.0 0.0-0.19 % Chemistry Labs: Test 03/06/24 11:40 03/06/24 05:52 03/06/24 03:20 03/05/24 04:43 Range/Units Whole Blood Glucose 148 H 70-110 MG/DL Bedside Glucose Comment Notified Nurse Sodium Level 141 136-145 mmol/L Potassium Level 4.3 3.5-5.1 mmol/L Chloride Level 102 101-111 mmol/L Carbon Dioxide Level 31 21-32 mmol/L Blood Urea Nitrogen 55 H 7-18 mg/dL Creatinine 2.2 H 0.5-1.0 mg/dL Glomerular Filtration Rate Calc 23 >90 mL/min Random Glucose 127 H 70-105 mg/dL Total Calcium 8.5 8.5-10.1 mg/dL B-Type Natriuretic Peptide 3080 H 0-100 pg/mL Magnesium Level 2.20 1.80-2.40 mg/dL Triglycerides Level 131 30-200 mg/dL Cholesterol Level 100 <200 mg/dL LDL Cholesterol 39 0-99 mg/dL HDL Cholesterol 47 35-85 mg/dL DIAGNOSTICS / RADIOLOGY RESULTS: [ ] PLAN Stress test once CHF is improved per cardio Not a candidate for DIAMOND/ARB, ARNI, aldactone d/t elevated creatinine Monitor respiratory status closely. Continue oxygen therapy, titrate to keep SpO2 equal to greater than 92%. Continue nebulizer treatments. RT to provide IS and education on use. Robitussin DM as needed for cough. DC Solu-Medrol. Continue antibiotic therapy: ceftazidime Consult Cardiology and nephrology Trend troponins and EKGs. Fluid restriction a 1200 mL. Strict I&Os. Daily weights. Echo in a[facility]m. heart clinic to read. [id number] mg p.o. daily. Atorvastatin 40 mg p.o. daily. Lasix 40 mg IV b.i.d. P.r.n. medications for: Pain, nausea, vomiting, constipation, hypertension Blood pressure checks every 4 hours and as needed. Reconcile home medications once available. Monitor renal and liver function. Monitor electrolytes and treat accordingly. A.m. labs: CBC, BNP, Mag, phos, TSH, A1c, troponin, GI and DVT prophylaxis. NEURO: Minimize central acting medications as possible. Maintain fall precautions, adequate lighting during the day PULMONARY: Supplemental 02 as needed. Maintain aspiration precautions at all times CARDIOVASCULAR: Follow hemodynamics. Vital signs per facility protocol GI & NUTRITION: Continue with nutritional support. Continue stool softeners and laxatives as needed. KIDNEYS & ELECTROLYTES: Strict monitoring of intake, output and overall fluid balance. Avoid nephrotoxic medications to the extent possible. Medications to be dosed according to renal function. Monitor electrolytes and replace as needed ENDOCRINE: Maintain blood glucose between 100-180 at all times. Hypoglycemia protocol in place INFECTIOUS DISEASE: Trend temperature, WBC and procalcitonin level Follow cultures, deescalate antibiotics as soon as possible. Panculture if new onset fever ONCOLOGY/HEMATOLOGY/COAGULATION: Monitor for s/s of bleeding Monitor hemoglobin, coagulation studies as needed SKIN: Pressure ulcer prevention per facility protocol Specialty mattress ORTHO/REHAB: Continue PT/OT Prophylaxis: Continue GI and DVT prophylaxis Code Status: Full Resuscitation Disposition: TBD TIME SPENT: >46 min AMAURY RAY Mar 06, 2024 15:59
[2024-03-06] MEDS: carVEDIlol 12.5 MG TABLET PO SCH (20:46)
--- NOTE | 2024-03-06 20:50 | NUR ---
REFUSAL: PT HAS A BLOOD SUGAR OF 221 AND IS ON LISPRO INSULIN SLIDING SCALE. PT REFUSED TO BE COVERED WITH 6 UNITS OF LISPRO, STATES SHE INJECTED HER OWN INSULIN.
[2024-03-07] MEDS: LACTULOSE 20 GM/30 ML UDCUP PO PRN
[2024-03-07 03:50] LABS: MEAN CORPUSCULAR VOLUME 93.8 fL (79-99); RED BLOOD CELL COUNT(AUTO) 3.73 MIL/uL (4.00-5.50); RED CELL DISTRIBUTION WIDTH 14.6 % (11.0-15.5); WHITE BLOOD COUNT (AUTO) 6.6 K/uL (4.8-10.8)
[2024-03-07 04:06] LABS: CREATININE 2.5 mg/dL (0.5-1.0)
[2024-03-07 04:44] VITALS: BP 114/73; PULSE 77; RESP 21; TEMP 97.7
[2024-03-07 06:53] VITALS: PULSE 72; RESP 18; O2SAT 96
[2024-03-07 08:00] VITALS: BP 121/65; PULSE 84; RESP 18; TEMP 98.5; O2SAT 95
--- NOTE | 2024-03-07 09:38 | PN ---
[facility] CARDIOLOGY PROGRESS NOTE Date Patient Seen: Mar 07, 2024 Time of Visit: 09:27 Interval History: This 73-year-old white female with a history of essential hypertension, hyperlipidemia, type 2 diabetes mellitus, stage III chronic renal insufficiency, and nmkf-ef-vgspnvot aortic regurgitation has been lost to cardiac follow-up since approximately 02/22. At that time a 2D echo February 22, 2021 demonstrated an LVEF of 55-60%, moderate concentric LVH, stage II diastolic dysfunction, and ehik-np-oohohqbs aortic regurgitation. She had been stable until one month prior to admission when she began noticing orthopnea and PND, and one week prior to admission when she began noticing progressive dyspnea on exertion culminating in respiratory distress prompting admission 03/03/2024. The patient was found to be in congestive heart failure with bilateral pleural effusions and basilar infiltrate. Her 12 lead EKG demonstrates evidence of an old anterior wall NM with QS complexes from V1 to V3 and a very small R-wave in V4. High sensitivity cardiac troponins were nonspecifically elevated at 657, 554, 464, and 522. A 2D echo here 03/02/2024 demonstrated anterior and apical moderate hypokinesis and mid and distal anteroseptal moderate hypokinesis with an LVEF of 40% and stage II diastolic dysfunction. In addition there was yhjw-vn-cfohccjm aortic regurgitation and severe pulmonary hypertension with an RV systolic pressure of 76 mm of mercury. Given her stage IV chronic renal insufficiency she has been placed on a combination of hydralazine and oral nitrates. She continues with cough and sputum cultures have grown out E coli and Pseudomonas. Chest x-ray 03/06/2024 demonstrates a marked improvement of her CHF with persisting small bilateral pleural effusions and basilar atelectasis. Pulmonary vascular congestion has improved. The patient underwent a Lexiscan Cardiolite stress test 03/05/2024 demonstrating extensive anterior, apical, inferior, and septal infarction, no ischemia, indicated ejection fraction of 26%. Physical Examination: GENERAL: No acute distress. HEAD: Normal with no signs of head trauma. EYES: PERRLA, EOMI, conjunctiva and sclera normal. NECK: Supple without JVD. There is no tenderness, lymphadenopathy, or masses. No thyromegaly. Normal carotid upstrokes without bruits. LUNGS: There are diminished breath sounds at both bases and bibasilar rales. There are no expiratory wheezes are audible rhonchi. HEART: Normal rate and rhythm. Normal S1 and S2 without murmurs, gallop or rub. There is no diastolic murmur audible. VASC: Peripheral pulses +2 bilaterally. EXT: No clubbing, cyanosis or edema. NEURO: Awake, alert, and oriented x3. No focal neurological deficits noted. Laboratory: Hematology Labs: Test 03/07/24 03:40 03/06/24 03:20 Range/Units White Blood Count 6.6 4.8-10.8 K/uL Red Blood Count 3.73 L 4.00-5.50 MIL/uL Hemoglobin 11.2 L 12.0-16.0 g/dL Hematocrit 35.0 L 36-48 % Mean Corpuscular Volume 93.8 79-99 fL Mean Corpuscular Hemoglobin 30.0 27.0-33.0 pg Mean Corpuscular Hemoglobin Concent 32.0 32.0-36.0 g/dL Red Cell Distribution Width 14.6 11.0-15.5 % Platelet Count 216 130-400 K/uL Mean Platelet Volume 10.9 H 7.5-10.5 fL Nucleated Red Blood Cells 0.0 0.0-0.19 % Immature Granulocyte % (Auto) 0.3 0-1 % Neutrophils (%) (Auto) 83.1 H 40.0-77.0 % Lymphocytes (%) (Auto) 5.6 L 21.0-51.0 % Monocytes (%) (Auto) 8.3 3.0-13.0 % Eosinophils (%) (Auto) 2.4 0.0-8.0 % Basophils (%) (Auto) 0.3 0.0-5.0 % Neutrophils # (Auto) 7.7 1.8-7.7 K/uL Lymphocytes # (Auto) 0.5 L 1.0-4.8 K/uL Monocytes # (Auto) 0.8 0.1-1.0 K/uL Eosinophils # (Auto) 0.22 0.00-0.70 K/uL Basophils # (Auto) 0.03 0.00-0.20 K/uL Absolute Immature Granulocyte (auto 0.03 0-1 K/uL Chemistry Labs: Test 03/07/24 05:32 03/07/24 03:40 03/06/24 03:20 Range/Units Whole Blood Glucose 142 H 70-110 MG/DL Bedside Glucose Comment Notified Nurse Sodium Level 145 136-145 mmol/L Potassium Level 4.0 3.5-5.1 mmol/L Chloride Level 106 101-111 mmol/L Carbon Dioxide Level 33 H 21-32 mmol/L Blood Urea Nitrogen 59 H 7-18 mg/dL Creatinine 2.5 H 0.5-1.0 mg/dL Glomerular Filtration Rate Calc 20 >90 mL/min Random Glucose 82 70-105 mg/dL Total Calcium 8.5 8.5-10.1 mg/dL B-Type Natriuretic Peptide 3080 H 0-100 pg/mL Diagnostics / Radiology: 2D echo 03/02/2024: Conclusion LVEF is 40% Stage II diastolic dysfunction. Mid and distal anteroseptal hypokinesis moderate Moderate anterior and apical hypokinesis noted Mild-moderate aortic insufficiency Mild-moderate tricuspid valve regurgitation noted. Right ventricular systolic pressure is estimated at 76mmHg consistent with moderate-severe pulmonary hypertension DICTATED BY: CHEYENNE FRANCIS MD DATE: 03/02/24 1114 Lexiscan Cardiolite stress test 03/05/2024: Conclusion Anterior, apical, inferior and septal infarct No ischemia LV ejection fraction 26% Diffuse severe LV hypokinesis Dilated LV at rest and stress No increased lung uptake DICTATED BY: CINDY LUO MD DATE: 03/05/24 1055 Impression and Plan: Acute HFrEF, symptom onset one month ago: Himb-sd-hkigetzg ischemic cardiomyopathy with LVEF of 40% by 2D echo 03/02/2024 with stage II diastolic dysfunction, with prior 2D echocardiogram February 22, 2021 demonstrating a normal LVEF of 55-60%: Gated ejection fraction 26% on Lexiscan Cardiolite stress test 03/05/2024: Yoqs-to-bckjlfxv aortic regurgitation by 2D echo 03/02/2024 and by prior remote 2D echocardiogram February 22, 2021: - patient has stage IV chronic renal insufficiency (previously stage III), limiting use of DIAMOND/ARB/ARNI therapy and mineralocorticoid antagonists - continue her chronic home carvedilol 6.25 p.o. b.i.d. - tolerating her newly initiated hydralazine 25 b.i.d., plus nitrates with isosorbide mono ER 30 mg daily - possible contribution of cardiorenal syndrome - transition to torsemide 20 mg p.o. b.i.d. 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 on EKG current admission: Extensive anterior, apical, inferior, and septal infarct on Lexiscan Cardiolite stress test 03/05/2024 with gated EF of 26%: LVEF of 40% with anteroapical moderate hypokinesis by 2D echo 03/02/2024: Nonspecific troponin elevation of 657>>> 554>>> 464>>> 522 in the setting of con gestive heart failure: - begin atorvastatin 40 mg daily - begin dual antiplatelet therapy with aspirin and clopidogrel Vcjw-pw-lbvdkhbi aortic regurgitation by 2D echo 03/02/2024 and by prior remote 2D echocardiogram February 22, 2021: - her valvular aortic regurgitation does not appear worse by comparison of echo reports, and her current decompensation appears to be due to the development of an intercurrent myocardial infarction since her prior remote echo in 2020. Acute on chronic renal insufficiency, previously stage III, currently stage IV: - avoid nephrotoxins - there is no ischemia on Lexiscan stress testing and we will defer cardiac catheterization to avoid contrast induced kidney injury - not a candidate for DIAMOND/ARB/ARNI therapy and mineralocorticoid antagonists given stage IV chronic renal insufficiency - her bi architect Dr. Zoila Castillo is following with us Comorbidities: Type 2 diabetes mellitus with circulatory and renal manifestations Hyperlipidemia Essential hypertension ANNIE DAVIS MD Mar 07, 2024 09:38
[2024-03-07] MEDS: ISOSORBIDE MONO 30MG SR TAB PO SCH (09:48)
[2024-03-07 11:16] VITALS: PULSE 73; RESP 18
[2024-03-07 12:00] VITALS: BP 103/48; PULSE 74; RESP 18; TEMP 98.2
[2024-03-07] MEDS ORDERED: Isosorbide Mono 30MG Sr Tab PO (14:43)
[2024-03-07] MEDS ORDERED: ATOR40TA69 PO (14:43)
[2024-03-07] MEDS ORDERED: HYDR25 PO (14:43)
[2024-03-07] MEDS ORDERED: TORS20TA4 PO (14:43)
[2024-03-07] MEDS ORDERED: BENZ-39 PO (14:43)
[2024-03-07] MEDS ORDERED: LEVO750T68 PO (14:43)
[2024-03-07] MEDS ORDERED: CLOP-31 PO (14:43)
--- NOTE | 2024-03-07 15:04 | NUR ---
PATIENT D/C HOME. ALL MEDICATIONS REVIEWED WITH PATIENT AND SPOUSE. PATIENT IS AWARE OF LIFE VEST BEING DELIVERED TO HOME. PATIENT TO CALL ECONOMICS DEPARTMENT CHAIR OFFICE TO SCHEDULE A FOLLOW UP APPOINTMENT. IV AND TELE REMOVED. PATIENT WHEELED DOWNSTAIRS AND TRANSFERRED TO PERSONAL [employer]
--- NOTE | 2024-03-07 15:44 | NUR ---
DC PLAN VISITED WITH PATIENT. RECEIVED TRIGGER FOR LIFE VEST. ROGER FOR [facility] RECEIVED. SPOKE TO JANKI VOSS. PATIENT SPOUSE WANTS TO LEAVE TODAY. RADIO PERFORMER SPOKE TO DR. DAVIS SAID OKAY TO DC CAN HAVE LIFE [facility] OUTPATIENT. PACKET MADE AND SENT TO [facility]. NEED MD TO SIGN [facility] LIFE [facility]ST. PENDING FORM TO SEND TO [facility]. LET PATIENT KNOW THAT IF HAS TROUBLE AND NO CALL FROM [facility] TO FOLLOW UP WITH [facility]. MIN WAS GOING TO SEND THEM THE PACKET WELL IN CASE THERE IS PROBLEMS. Addendum: 03/07/24 at 1551 by EFE MUNGUIA RN CM Amended: Links added.
[2024-03-07] MEDS ORDERED: carVEDIlol 6.25 MG TABLET PO SCH (21:00)
[2024-03-07] MEDS ORDERED: hydrALAZine 25MG TABLET PO SCH (21:00)
[2024-03-07] MEDS ORDERED: TORSEMIDE 20 MG TAB PO SCH (21:00)
--- NOTE | 2024-03-07 21:45 | DS ---
[facility] DISCHARGE SUMMARY Date Patient Seen: Mar 07, 2024 Time of Visit: 21:41 Supervising Physician: Dr. Keith Carney Primary Care Physician: Dr. Apolinar Quick Outpatient Specialists: [facility] last seen in 2021 Inpatient Consults: [facility] HOSPITAL COURSE: HPI (per admitting provider) Ms. Pretty is a 73-year-old female with a history of hypertension, hyperlipidemia and diabetes who presented to the emergency department with several days of body aches and cough, worsening shortness of breath, diarrhea and a chest pain exacerbated by deep breath and cough which is constant and substernal. She is not producing a lot of sputum. She visited her PCP Dr. srini Quick on Monday who prescribed a Z-Pa,k inhaler and prednisone which seemed to make her feel better. She also reported experiencing about 22 days of severe nocturnal heartburn and did see the PCP who gave her a course of easy omeprazole which did not relieve her symptoms. She switch to Tums and did get relief of the symptoms and once those symptoms were gone she began experiencing the cough. Yesterday she noted some ankle edema which improved with a elevation overnight. Her chest pain today was reported to be sharp in nature and exacerbated by deep breath and cough, nonradiating. She has never been a smoker. Patient reports that in 2021 her PCP thought he heard a murmur and sent her to [facility] clinic. She reports that [facility] reported everything was fine and has not gone to see a services manager since 2021. In ED the patient's saturations were around 93% on 2-1/2 L of oxygen. White count is 8.2, there was mild anemia. BUN is 54 and creatinine is 2.1. GFR 24. There was low calcium, high magnesium and elevated transaminase. The patient's BNP is 2430. Lactic acid is mildly elevated at 2.2. A previous cardiac echo showed normal LV function in 2020 In ED the patient received oxygen, DuoNeb and was started on antibiotics. After the chest x-ray and BNP were reviewed patient was admitted and Lasix was started. ED physician requested patient be admitted with the diagnosis of new onset of congestive heart failure, suspected pneumonia, hypocalcemia, and renal insufficiency. Patient was admitted under BI team. I went to assess the patient at bedside. Patient breathing was even, unlabored, on 2.5 L of oxygen. I spent extensive time explaining to patient's labs, diagnostics, and plan of care. The patient had multiple questions which were addressed by me. Education done on fluid overload, pleural effusions, and pneumonia was done by me. The patient verbalized understanding and is in agreement with the plan. Plan and assessment are listed below. The patient was treated for the following problems: ACTIVE PROBLEM LIST FOR THE HOSPITALIZATION: NSTEMI, stress test reports no active ischemia Acute hypoxemic respiratory failure, POA, multifactorial, resolved, finishing antibiotic therapy as outpatient Acute on chronic mrEF congestive heart failure - LVEF 40% returned to baseline Ischemic cardiomyopathy Community acquired pneumonia, POA, ecoli and pseudomonas on sputum culture, MDRO, resolved, finishing antibiotic therapy as outpatient Acute renal failure secondary to ATN on chronic kidney disease Hyperglycemia in the setting of type 2 DM Hypocalcemia, POA Hypomagnesemia Anemia of chronic disease Hypoalbuminemia Elevated D-dimer, PE was ruled out via CTA chest CHRONIC PROBLEMS: continue previous management per PCP unless otherwise indicated Hypertension, hyperlipidemia, diabetes mellitus type 2 TRANSPORTATION ATTENDANT FINDINGS/RECOMMENDATIONS: [ ] PROCEDURES: as mentioned above DISCHARGE MEDICATIONS: Pt hemodynamically stable and afebrile at time of discharge. PCP notified of patients admission, hospital course and discharge. PHYSICAL EXAM: GENERAL: Alert, awake oriented x 3 HEENT: EOMI, Sclera non icteric, moist mucosa NECK: Supple, no JVD, trachea midline LUNGS: Breathing was even and unlabored. Upper lobes crackles, lower lobes diminished bilaterally. No wheezes. HEART: Regular rate and rhythm. Normal S1 and S2, without murmurs ABD: Abdomen soft, nontender. Bowel sounds present EXT: No clubbing cyanosis or +1 edema NEURO: Alert and oriented x3, follows commands, no neuro deficits noted. FOLLOW-UP: Follow-up with PCP in 2-3 days RECOMMENDATIONS: See Discharge Instructions This case was seen and discussed with my supervising physician. More than 30 minutes spent on discharge process, including evaluation of the patient, discussion with nursing staff, medication reconciliation and follow-up appointments AMAURY RAY Mar 07, 2024 21:45
--- NOTE | 2024-03-12 10:18 | PN ---
NEPHROLOGY FOLLOWUP NOTE INTERVAL HISTORY: The patient was evaluated this morning. No family present. Continues to report improving symptoms of cough and shortness of breath. Reports adequate urine output. Denies any gross hematuria, dysuria, fevers, chills, chest pain, palpitations at this time. OBJECTIVE: CURRENT VITAL SIGNS: Temperature is 97.7, pulse 77, blood pressure 114/73, respiratory rate is 21, satting 94% on room air. GENERAL: The patient is awake, alert, oriented, no respiratory distress. CARDIAC: Regular rhythm and rate. CHEST: Few rales at the left base. ABDOMEN: Soft, nontender. EXTREMITIES: No edema. LABORATORY DATA: Sodium is 145, potassium is 4.0, chloride 106, bicarbonate is 33, BUN is 59, creatinine is 2.5, calcium is 8.5. White count is 6.6, hemoglobin 11.2, hematocrit 35.0, and platelet count 260. ASSESSMENT: * Acute on chronic kidney injury. * Underlying chronic kidney disease, stage 3, secondary to diabetic nephropathy, hypertensive nephrosclerosis. * Acute volume overload. * Bilateral pleural effusions. * Acute systolic dysfunction. * Bilateral pneumonia. * Acute hypoxic respiratory failure. * Abnormal cardiac enzymes and presumed underlying cardiovascular disease. * Elevated white cells. * Anemia. * Hypertension. * Type 2 diabetes. PLAN: * Acute on chronic kidney injury. There has been a decline in renal clearance during hospitalization as expected in the setting of aggressive diuresis at this time as clinically improved. Agree with transition to oral diuretics. Avoid nephrotoxins. Renal dose all medications. Acute component presumed, cardiorenal, also adjust dose of hydralazine to avoid relative hypotension, which can lead to decrease in renal perfusion as well if cleared by Cardiology. The patient will be discharged home, 1 week follow up to repeat renal function studies. Discussed with nursing staff. * Acute systolic dysfunction, transitioned to oral diuretics. Reviewed sodium and fluid restriction, cardiac regimen as per Cardiology. Adjust dose of hydralazine to twice a day to avoid hypotension. * Again discussed with the patient importance of followup in the clinic after discharge for continued monitoring of underlying renal disease. TID: [id number] RECEIPT: [id number]
--- NOTE | 2024-03-12 10:39 | CONS ---
NEPHROLOGY CONSULTATION REASON FOR CONSULTATION: Acute on chronic kidney injury. HISTORY OF PRESENT ILLNESS: The patient is a 73-year-old female with history of underlying CKD stage III, type 2 diabetes, hypertension, hyperlipidemia, who presents initially with complaints of cough, congestion, chest pain, weakness. Initial lab studies did reveal abnormal BNP of 2430 as well as elevated cardiac enzymes, has been evaluated by Cardiology. Imaging also reviewed moderate bilateral pleural effusions with bilateral basilar pneumonia. The patient has been initiated on IV diuretics with increase in urine output, IV antibiotics. Echocardiogram revealed LVEF of 40% and stage II diastolic dysfunction. Initial labs did reveal creatinine of 2.1, with a creatinine of 2.3 as of this morning. Nephrology consulted for acute on chronic kidney injury and for evaluation given possible need to proceed with coronary angiogram in the setting of abnormal cardiac enzymes. The patient was evaluated in her room this morning, remains on supplemental oxygen, is awake, is alert reports overall clinically is improving. REVIEW OF SYSTEMS: CONSTITUTIONAL: Denies any fevers or chills. Does report generalized weakness and fatigue. EYES: Denies any acute change in vision. EARS: Denies any ear pain or discharge. NOSE AND THROAT: Does complain of nasal congestion. PULMONARY: Reports cough, wheezing, shortness of breath. CARDIOVASCULAR: Chest pain as per HPI. GASTROINTESTINAL: Does report heartburn symptoms, GERD. GENITOURINARY: Denies any gross hematuria or dysuria. HEMATOLOGY: Denies any acute blood loss. NEUROLOGIC: Denies any focal weakness or syncope. DERMATOLOGY: Denies any new skin lesions. PSYCHIATRIC: Denies any anxiety or depression. PAST MEDICAL HISTORY: Chronic kidney disease stage III, presumed underlying diabetic nephropathy, hypertensive nephrosclerosis, hypertension, type 2 diabetes, gastroparesis, hyperlipidemia, hyperkalemia and diastolic dysfunction, hypertensive heart disease. PAST SURGICAL HISTORY: Right shoulder surgery, bilateral carpal tunnel surgery, right carotid artery surgery, right foot surgery. FAMILY HISTORY: Noncontributory. SOCIAL HISTORY: Nonsmoker, no alcohol use. ALLERGIES: No known drug allergies. CURRENT MEDICATIONS: Have been reviewed. PHYSICAL EXAMINATION: CURRENT VITAL SIGNS: Temperature 98.1, pulse 76, blood pressure 125/68, respiratory rate is 16, satting 96% on room air. GENERAL: The patient was evaluated sitting up in bed, awake, alert, oriented on supplemental oxygen. HEENT: Anicteric sclerae. NECK: Elevated JVD. Supple. CARDIAC: Regular rhythm and rate. CHEST: Diminished breath sounds at bases with crackles. ABDOMEN: Soft, nontender. EXTREMITIES: Trace edema. NEUROLOGIC: Nonfocal. LABORATORY DATA: Sodium 144, potassium is 4.2, chloride 106, bicarbonate is 30, BUN is 56, creatinine is 2.3, calcium is 8.1. White count is 12.8, hemoglobin 11.2, hematocrit 35.1, platelet count is 284. ASSESSMENT: * Acute on chronic kidney injury. * Underlying chronic kidney disease, stage 3, secondary to diabetic nephropathy versus hypertensive nephrosclerosis. * Acute volume overload. * Acute systolic dysfunction. * Bilateral pneumonia. * Acute respiratory failure. * Leukocytosis. * Abnormal troponins. PLAN: * Acute on chronic kidney injury. Previous lab studies in the outpatient setting revealed a creatinine 1.58 and GFR 34%, although in 06/2022 the patient has been lost to follow followup in the outpatient clinic setting since that visit with possible renal function has progressed in the setting of poorly controlled blood sugars versus acute hemodynamic etiology given acute illness. The patient also on aggressive diuresis and acute decline possibly multifactorial on hemodynamic given abnormal cardiac enzymes. I did discuss at length, the patient is high risk for contrast-induced nephropathy. We will add NAC to regimen for prophylaxis. Avoid fluids given pulmonary edema and pleural effusions. The patient has been managed well aware of the risks of proceeding with angiogram, although if needed has agreed to proceed. The patient is discussed with Cardiology. * Acute on chronic systolic heart failure. The patient remains on IV diuretics. Clinically, appears to be improving. May need to adjust dose given upward trend of creatinine. Consider transitioning to oral once clinically improved. Plan as recommended by Cardiology. Continue fluid restriction, sodium restriction. * Bilateral pneumonia. Renal dose antibiotics. * Acute respiratory failure. The patient remains on supplemental oxygen. Continue with treatment of acute issues, diuresis, antibiotics. Wean off as tolerated. * Abnormal troponins, has been evaluated by Cardiology. * Possible coronary angiogram. Again, risks of contrast nephropathy discussed in detail with the patient, who wishes to proceed. TID: [id number] RECEIPT: [id number]
[2024-03-14] MEDS ORDERED: ALBU18HF7 IH (17:30)
[2024-03-14] MEDS ORDERED: FLUC150T48 PO (17:30)
== END 2024-03-07 15:25 | disposition home or self-care (01) | DRG 280 ==
LOC: EDH 10:12 → OBSVTOIN 12:24 → EDHIP 12:24 → 2BH 03-02 06:24 → 4AH 03-03 10:10
PROVIDERS: ADMIT Internal Medicine; ATTEND Internal Medicine
PROC: 4A12XM4 Monitoring of Cardiac Stress, External Approach (ICD-10-PCS; principal; 2024-03-05)
PROC: 3E073KZ Introduction of Other Diagnostic Substance into Coronary Artery, Percutaneous Approach (ICD-10-PCS; 2024-03-05)
DX: I13.0 Hypertensive heart and chronic kidney disease with heart failure and stage 1 through stage 4 chronic kidney disease, or unspecified chronic kidney disease (principal); I50.41 Acute combined systolic (congestive) and diastolic (congestive) heart failure; I21.4 Non-ST elevation (NSTEMI) myocardial infarction; J18.9 Pneumonia, unspecified organism; J96.01 Acute respiratory failure with hypoxia; N17.0 Acute kidney failure with tubular necrosis; N18.4 Chronic kidney disease, stage 4 (severe); Z16.24 Resistance to multiple antibiotics; E83.51 Hypocalcemia; E83.42 Hypomagnesemia; E11.65 Type 2 diabetes mellitus with hyperglycemia; E78.00 Pure hypercholesterolemia, unspecified; E88.09 Other disorders of plasma-protein metabolism, not elsewhere classified; E11.22 Type 2 diabetes mellitus with diabetic chronic kidney disease; D63.1 Anemia in chronic kidney disease; D50.9 Iron deficiency anemia, unspecified; I27.20 Pulmonary hypertension, unspecified; I25.5 Ischemic cardiomyopathy; K21.9 Gastro-esophageal reflux disease without esophagitis; K59.00 Constipation, unspecified; G56.00 Carpal tunnel syndrome, unspecified upper limb; B96.20 Unspecified Escherichia coli [E. coli] as the cause of diseases classified elsewhere; I35.1 Nonrheumatic aortic (valve) insufficiency; Z79.899 Other long term (current) drug therapy; Z82.49 Family history of ischemic heart disease and other diseases of the circulatory system
CPT/HCPCS: 36415; 36600; 71045; 71250; 78452; 80048; 80053; 80061; 80076; 81001; 82330; 82550; 82803; 82948; 83036; 83605; 83735; 83880; 84100; 84145; 84443; 84484; 85025; 85027; 85378; 85651; 87040; 87071; 87086; 87186; 87205; 87426; 87804; 93005; 93017; 93306; 93970; 94640; 94664; 96374; 96375; 99285; A9500; G0378; J0456; J0696; J0713; J1650; J1940; J2405; J2785; J2919; J7030

== ENCOUNTER → 2024-03-28 | Outpatient (CLI) | payer MEDICARE ==
[~2024-03-28] MED LIST: ALBU18HF7 IH; ASPI-1197 PO; ATOR40TA69 PO; CARV12.511 PO; CHOL200074 PO; CLOP-31 PO; EMPA10TA PO; GLUC1TAB61 PO; INSU100I15 SQ; LIDOCAINE HCL 4% LTA SOL 4 ML VIAL TP ONE; MULT-1250 PO; SELE200C PO; TORS20TA4 PO; VITA-395 PO; [UNRECOGNIZED DRUG - OTHER] PO; [UNRECOGNIZED DRUG - OTHER] PO; [UNRECOGNIZED DRUG - OTHER] PO
== END | disposition home or self-care (01) ==
LOC: WHH 10:11
PROVIDERS: ATTEND Family Medicine
DX: I87.312 Chronic venous hypertension (idiopathic) with ulcer of left lower extremity (principal); E11.622 Type 2 diabetes mellitus with other skin ulcer; L97.822 Non-pressure chronic ulcer of other part of left lower leg with fat layer exposed; E11.22 Type 2 diabetes mellitus with diabetic chronic kidney disease; I13.0 Hypertensive heart and chronic kidney disease with heart failure and stage 1 through stage 4 chronic kidney disease, or unspecified chronic kidney disease; N18.4 Chronic kidney disease, stage 4 (severe); I50.43 Acute on chronic combined systolic (congestive) and diastolic (congestive) heart failure; D63.1 Anemia in chronic kidney disease; E78.00 Pure hypercholesterolemia, unspecified; I27.20 Pulmonary hypertension, unspecified; I25.10 Atherosclerotic heart disease of native coronary artery without angina pectoris; E83.51 Hypocalcemia; E83.42 Hypomagnesemia; E87.6 Hypokalemia; Z79.82 Long term (current) use of aspirin; Z79.4 Long term (current) use of insulin; Z89.421 Acquired absence of other right toe(s); Z79.899 Other long term (current) drug therapy; Z96.41 Presence of insulin pump (external) (internal); Z86.73 Personal history of transient ischemic attack (TIA), and cerebral infarction without residual deficits
CPT/HCPCS: G0463; A6209; A4450

== ENCOUNTER → 2024-04-04 | Outpatient (CLI) | payer MEDICARE | END | disposition home or self-care (01) | LOC: WHH 08:59 | PROVIDERS: ATTEND Family Medicine | DX: I87.312 Chronic venous hypertension (idiopathic) with ulcer of left lower extremity (principal); E11.622 Type 2 diabetes mellitus with other skin ulcer; L97.822 Non-pressure chronic ulcer of other part of left lower leg with fat layer exposed; E11.22 Type 2 diabetes mellitus with diabetic chronic kidney disease; I13.0 Hypertensive heart and chronic kidney disease with heart failure and stage 1 through stage 4 chronic kidney disease, or unspecified chronic kidney disease; N18.4 Chronic kidney disease, stage 4 (severe); I50.43 Acute on chronic combined systolic (congestive) and diastolic (congestive) heart failure; D63.1 Anemia in chronic kidney disease; E78.00 Pure hypercholesterolemia, unspecified; I27.20 Pulmonary hypertension, unspecified; I25.10 Atherosclerotic heart disease of native coronary artery without angina pectoris; E83.51 Hypocalcemia; E83.42 Hypomagnesemia; E87.6 Hypokalemia; Z79.82 Long term (current) use of aspirin; Z79.4 Long term (current) use of insulin; Z89.421 Acquired absence of other right toe(s); Z79.899 Other long term (current) drug therapy; Z96.41 Presence of insulin pump (external) (internal); Z86.73 Personal history of transient ischemic attack (TIA), and cerebral infarction without residual deficits | CPT/HCPCS: G0463; A6209 ==

== ENCOUNTER → 2024-04-18 | Outpatient (CLI) | payer MEDICARE ==
[~2024-04-18] MED LIST changes: +HONEY 1 APPL/ML TUBE TP ONE; -LIDOCAINE HCL 4% LTA SOL 4 ML VIAL TP ONE
== END | disposition home or self-care (01) ==
LOC: WHH 09:03
PROVIDERS: ATTEND Family Medicine
DX: I87.312 Chronic venous hypertension (idiopathic) with ulcer of left lower extremity (principal); E10.622 Type 1 diabetes mellitus with other skin ulcer; L97.822 Non-pressure chronic ulcer of other part of left lower leg with fat layer exposed; E10.22 Type 1 diabetes mellitus with diabetic chronic kidney disease; I13.0 Hypertensive heart and chronic kidney disease with heart failure and stage 1 through stage 4 chronic kidney disease, or unspecified chronic kidney disease; N18.4 Chronic kidney disease, stage 4 (severe); I50.43 Acute on chronic combined systolic (congestive) and diastolic (congestive) heart failure; E83.51 Hypocalcemia; E87.6 Hypokalemia; E83.42 Hypomagnesemia; E78.00 Pure hypercholesterolemia, unspecified; I25.10 Atherosclerotic heart disease of native coronary artery without angina pectoris; Z79.82 Long term (current) use of aspirin; Z79.4 Long term (current) use of insulin; Z89.421 Acquired absence of other right toe(s); Z79.899 Other long term (current) drug therapy; Z96.41 Presence of insulin pump (external) (internal); Z86.73 Personal history of transient ischemic attack (TIA), and cerebral infarction without residual deficits
CPT/HCPCS: G0463; A6212; A6209

== ENCOUNTER → 2024-05-02 | Outpatient (CLI) | payer MEDICARE ==
[~2024-05-02] MED LIST changes: -HONEY 1 APPL/ML TUBE TP ONE
== END | disposition home or self-care (01) ==
LOC: WHH 09:03
PROVIDERS: ATTEND Family Medicine
DX: I87.312 Chronic venous hypertension (idiopathic) with ulcer of left lower extremity (principal); E10.622 Type 1 diabetes mellitus with other skin ulcer; L97.822 Non-pressure chronic ulcer of other part of left lower leg with fat layer exposed; E10.22 Type 1 diabetes mellitus with diabetic chronic kidney disease; I13.0 Hypertensive heart and chronic kidney disease with heart failure and stage 1 through stage 4 chronic kidney disease, or unspecified chronic kidney disease; N18.4 Chronic kidney disease, stage 4 (severe); I50.43 Acute on chronic combined systolic (congestive) and diastolic (congestive) heart failure; E83.51 Hypocalcemia; E87.6 Hypokalemia; E83.42 Hypomagnesemia; E78.00 Pure hypercholesterolemia, unspecified; I25.10 Atherosclerotic heart disease of native coronary artery without angina pectoris; Z79.82 Long term (current) use of aspirin; Z79.4 Long term (current) use of insulin; Z89.421 Acquired absence of other right toe(s); Z79.899 Other long term (current) drug therapy; Z96.41 Presence of insulin pump (external) (internal); Z86.73 Personal history of transient ischemic attack (TIA), and cerebral infarction without residual deficits
CPT/HCPCS: G0463; A6212; A6209

== ENCOUNTER → 2024-05-09 | Outpatient (CLI) | payer MEDICARE ==
[~2024-05-09] MED LIST changes: +LIDOCAINE HCL 4% LTA SOL 4 ML VIAL TP ONE
== END | disposition home or self-care (01) ==
LOC: WHH 09:00
PROVIDERS: ATTEND Family Medicine
DX: I87.312 Chronic venous hypertension (idiopathic) with ulcer of left lower extremity (principal); E10.622 Type 1 diabetes mellitus with other skin ulcer; L97.822 Non-pressure chronic ulcer of other part of left lower leg with fat layer exposed; E10.22 Type 1 diabetes mellitus with diabetic chronic kidney disease; I13.0 Hypertensive heart and chronic kidney disease with heart failure and stage 1 through stage 4 chronic kidney disease, or unspecified chronic kidney disease; N18.4 Chronic kidney disease, stage 4 (severe); I50.43 Acute on chronic combined systolic (congestive) and diastolic (congestive) heart failure; E83.51 Hypocalcemia; E87.6 Hypokalemia; E78.00 Pure hypercholesterolemia, unspecified; E83.42 Hypomagnesemia; I25.10 Atherosclerotic heart disease of native coronary artery without angina pectoris; Z79.82 Long term (current) use of aspirin; Z79.4 Long term (current) use of insulin; Z89.421 Acquired absence of other right toe(s); Z79.899 Other long term (current) drug therapy; Z96.41 Presence of insulin pump (external) (internal); Z86.73 Personal history of transient ischemic attack (TIA), and cerebral infarction without residual deficits
CPT/HCPCS: 17250; 80048; 83880; 36415; A6212; A6209

== ENCOUNTER → 2024-05-13 | Outpatient (CLI) | payer MEDICARE ==
[~2024-05-13] MED LIST changes: -LIDOCAINE HCL 4% LTA SOL 4 ML VIAL TP ONE
--- NOTE | 2024-05-14 23:05 | HMCSR ---
APPROVED REPORT EXAM: Limited Two-dimensional echocardiogram INDICATION ICD: I25.10 Atherosclerotic heart disease of [place] coronary artery without angina pectoris, I25.2 2D Dimensions IVSd0.9 (0.7-1.1cm)LVEF(%)37.7 (>50%)LVED Vol(simp.)127.0 mL LVDd5.1 (3.8-5.6cm)FS(%)18 %LVES Vol(simp.)73.0 mL PWd0.7 (0.7-1.1cm)LA (2D)4.2 (1.6-4.0cm)LVEF(%, simp.)43 % LVDs4.1 (2.5-4.0cm)Ao Root(2D)2.7 (2.0-3.7cm) Left Ventricle Left ventricular cavity size is normal. Anterior-apical, anteroseptal thinning and severe hypokinesis . Anteroapical and apical akinesis. There is normal left ventricular wall thickness. LVEF is 40-45% b y Mckenzie's biplane method. No apical mural thrombus. Mitral Valve Mitral annular calcification. Pericardium No pericardial effusion. Other Information Quality : Limited/Follow-up Conclusion Limited study to assess LV wall motion and ejection fraction 3 months s/p anterior wall VA. Left ventricular cavity size is normal. There is normal left ventricular wall thickness. Anterior-apical, anteroseptal thinning and severe hypokinesis. Anteroapical and apical akinesis. LVEF is 40-45% by Mckenzie's biplane method. No apical mural thrombus.
== END | disposition home or self-care (01) ==
LOC: SHCH 15:30
PROVIDERS: ATTEND Internal Medicine Cardiovascular Disease
DX: I34.81 Nonrheumatic mitral (valve) annulus calcification (principal); I34.0 Nonrheumatic mitral (valve) insufficiency; I25.2 Old myocardial infarction; I25.10 Atherosclerotic heart disease of native coronary artery without angina pectoris
CPT/HCPCS: 93308

== ENCOUNTER → 2024-05-16 | Outpatient (CLI) | payer MEDICARE ==
[~2024-05-16] MED LIST changes: +LIDOCAINE HCL 4% LTA SOL 4 ML VIAL TP ONE
== END | disposition home or self-care (01) ==
LOC: WHH 09:12
PROVIDERS: ATTEND Family Medicine
DX: I87.312 Chronic venous hypertension (idiopathic) with ulcer of left lower extremity (principal); E10.622 Type 1 diabetes mellitus with other skin ulcer; L97.822 Non-pressure chronic ulcer of other part of left lower leg with fat layer exposed; E10.22 Type 1 diabetes mellitus with diabetic chronic kidney disease; I13.0 Hypertensive heart and chronic kidney disease with heart failure and stage 1 through stage 4 chronic kidney disease, or unspecified chronic kidney disease; N18.4 Chronic kidney disease, stage 4 (severe); I50.43 Acute on chronic combined systolic (congestive) and diastolic (congestive) heart failure; E83.51 Hypocalcemia; E87.6 Hypokalemia; E78.00 Pure hypercholesterolemia, unspecified; E83.42 Hypomagnesemia; I25.10 Atherosclerotic heart disease of native coronary artery without angina pectoris; Z79.82 Long term (current) use of aspirin; Z79.4 Long term (current) use of insulin; Z89.421 Acquired absence of other right toe(s); Z79.899 Other long term (current) drug therapy; Z96.41 Presence of insulin pump (external) (internal); Z86.73 Personal history of transient ischemic attack (TIA), and cerebral infarction without residual deficits
CPT/HCPCS: G0463

== ENCOUNTER 2024-05-23 09:16 | Outpatient (CLI) | payer MEDICARE ==
[~2024-05-23 09:16] MED LIST changes: -LIDOCAINE HCL 4% LTA SOL 4 ML VIAL TP ONE
== END 2024-05-23 15:36 | disposition home or self-care (01) ==
LOC: WHH 09:16
PROVIDERS: ATTEND Family Medicine
DX: I87.312 Chronic venous hypertension (idiopathic) with ulcer of left lower extremity (principal); E10.622 Type 1 diabetes mellitus with other skin ulcer; L97.822 Non-pressure chronic ulcer of other part of left lower leg with fat layer exposed; E10.22 Type 1 diabetes mellitus with diabetic chronic kidney disease; I13.0 Hypertensive heart and chronic kidney disease with heart failure and stage 1 through stage 4 chronic kidney disease, or unspecified chronic kidney disease; N18.4 Chronic kidney disease, stage 4 (severe); I50.43 Acute on chronic combined systolic (congestive) and diastolic (congestive) heart failure; E83.51 Hypocalcemia; E87.6 Hypokalemia; E78.00 Pure hypercholesterolemia, unspecified; E83.42 Hypomagnesemia; I25.10 Atherosclerotic heart disease of native coronary artery without angina pectoris; Z79.82 Long term (current) use of aspirin; Z79.4 Long term (current) use of insulin; Z89.421 Acquired absence of other right toe(s); Z79.899 Other long term (current) drug therapy; Z86.73 Personal history of transient ischemic attack (TIA), and cerebral infarction without residual deficits
CPT/HCPCS: G0463

== ENCOUNTER → 2024-11-14 | Outpatient (CLI) | payer MEDICARE ==
[~2024-11-14] MED LIST changes: -ALBU18HF7 IH; -CARV12.511 PO; -CHOL200074 PO; +FLUC150T48 PO; -INSU100I15 SQ; +ISOS-58 PO; +METO-391 PO; -MULT-1250 PO; +NITR0.4T50 SL; +SILVER NITRATE APPLICATOR 1 SWAB TP ONE; -VITA-395 PO; -[UNRECOGNIZED DRUG - OTHER] PO; -[UNRECOGNIZED DRUG - OTHER] PO; -[UNRECOGNIZED DRUG - OTHER] PO
== END | disposition home or self-care (01) ==
LOC: WHH 09:06
PROVIDERS: ATTEND Family Medicine
DX: E11.621 Type 2 diabetes mellitus with foot ulcer (principal); L97.422 Non-pressure chronic ulcer of left heel and midfoot with fat layer exposed; L97.412 Non-pressure chronic ulcer of right heel and midfoot with fat layer exposed; L97.511 Non-pressure chronic ulcer of other part of right foot limited to breakdown of skin; L97.521 Non-pressure chronic ulcer of other part of left foot limited to breakdown of skin; E11.22 Type 2 diabetes mellitus with diabetic chronic kidney disease; I13.0 Hypertensive heart and chronic kidney disease with heart failure and stage 1 through stage 4 chronic kidney disease, or unspecified chronic kidney disease; N18.4 Chronic kidney disease, stage 4 (severe); I50.43 Acute on chronic combined systolic (congestive) and diastolic (congestive) heart failure; E78.00 Pure hypercholesterolemia, unspecified; I25.10 Atherosclerotic heart disease of native coronary artery without angina pectoris; Z79.82 Long term (current) use of aspirin; Z79.4 Long term (current) use of insulin; Z89.421 Acquired absence of other right toe(s); Z79.899 Other long term (current) drug therapy; Z86.73 Personal history of transient ischemic attack (TIA), and cerebral infarction without residual deficits
CPT/HCPCS: 11042; 11045; A6197 ×2; A4450

== ENCOUNTER → 2024-11-21 | Outpatient (CLI) | payer MEDICARE ==
[~2024-11-21] MED LIST changes: -SILVER NITRATE APPLICATOR 1 SWAB TP ONE
== END | disposition home or self-care (01) ==
LOC: WHH 09:58
PROVIDERS: ATTEND Family Medicine
DX: E11.621 Type 2 diabetes mellitus with foot ulcer (principal); L97.412 Non-pressure chronic ulcer of right heel and midfoot with fat layer exposed; L97.422 Non-pressure chronic ulcer of left heel and midfoot with fat layer exposed; L97.511 Non-pressure chronic ulcer of other part of right foot limited to breakdown of skin; L97.521 Non-pressure chronic ulcer of other part of left foot limited to breakdown of skin; E11.22 Type 2 diabetes mellitus with diabetic chronic kidney disease; I13.0 Hypertensive heart and chronic kidney disease with heart failure and stage 1 through stage 4 chronic kidney disease, or unspecified chronic kidney disease; N18.4 Chronic kidney disease, stage 4 (severe); I50.43 Acute on chronic combined systolic (congestive) and diastolic (congestive) heart failure; E78.00 Pure hypercholesterolemia, unspecified; I25.10 Atherosclerotic heart disease of native coronary artery without angina pectoris; Z79.82 Long term (current) use of aspirin; Z79.4 Long term (current) use of insulin; Z89.421 Acquired absence of other right toe(s); Z79.899 Other long term (current) drug therapy; Z86.73 Personal history of transient ischemic attack (TIA), and cerebral infarction without residual deficits
CPT/HCPCS: G0463

== ENCOUNTER → 2024-12-16 | Outpatient (CLI) | payer MEDICARE | END | disposition home or self-care (01) | LOC: WHH 09:36 | PROVIDERS: ATTEND Family Medicine | DX: E11.621 Type 2 diabetes mellitus with foot ulcer (principal); L97.412 Non-pressure chronic ulcer of right heel and midfoot with fat layer exposed; L97.422 Non-pressure chronic ulcer of left heel and midfoot with fat layer exposed; L97.512 Non-pressure chronic ulcer of other part of right foot with fat layer exposed; L97.521 Non-pressure chronic ulcer of other part of left foot limited to breakdown of skin; E11.22 Type 2 diabetes mellitus with diabetic chronic kidney disease; I13.0 Hypertensive heart and chronic kidney disease with heart failure and stage 1 through stage 4 chronic kidney disease, or unspecified chronic kidney disease; N18.4 Chronic kidney disease, stage 4 (severe); I50.43 Acute on chronic combined systolic (congestive) and diastolic (congestive) heart failure; E78.00 Pure hypercholesterolemia, unspecified; I25.10 Atherosclerotic heart disease of native coronary artery without angina pectoris; Z79.82 Long term (current) use of aspirin; Z79.4 Long term (current) use of insulin; Z89.421 Acquired absence of other right toe(s); Z79.899 Other long term (current) drug therapy; Z86.73 Personal history of transient ischemic attack (TIA), and cerebral infarction without residual deficits | CPT/HCPCS: 11042; A6196; A6197 ==

== ENCOUNTER → 2024-12-23 | Outpatient (CLI) | payer MEDICARE ==
[~2024-12-23] MED LIST changes: +LIDOCAINE HCL 4% LTA SOL 4 ML VIAL TP ONE
== END | disposition home or self-care (01) ==
LOC: WHH 09:57
PROVIDERS: ATTEND Family Medicine
DX: E11.621 Type 2 diabetes mellitus with foot ulcer (principal); L97.412 Non-pressure chronic ulcer of right heel and midfoot with fat layer exposed; L97.422 Non-pressure chronic ulcer of left heel and midfoot with fat layer exposed; L97.522 Non-pressure chronic ulcer of other part of left foot with fat layer exposed; E11.22 Type 2 diabetes mellitus with diabetic chronic kidney disease; I13.0 Hypertensive heart and chronic kidney disease with heart failure and stage 1 through stage 4 chronic kidney disease, or unspecified chronic kidney disease; N18.4 Chronic kidney disease, stage 4 (severe); I50.43 Acute on chronic combined systolic (congestive) and diastolic (congestive) heart failure; E78.00 Pure hypercholesterolemia, unspecified; I25.10 Atherosclerotic heart disease of native coronary artery without angina pectoris; Z79.82 Long term (current) use of aspirin; Z79.4 Long term (current) use of insulin; Z89.421 Acquired absence of other right toe(s); Z79.899 Other long term (current) drug therapy; Z86.73 Personal history of transient ischemic attack (TIA), and cerebral infarction without residual deficits
CPT/HCPCS: 11042; 11045

== ENCOUNTER → 2025-01-06 | Outpatient (CLI) | payer MEDICARE ==
[~2025-01-06] MED LIST changes: -LIDOCAINE HCL 4% LTA SOL 4 ML VIAL TP ONE
== END | disposition home or self-care (01) ==
LOC: WHH 09:58
PROVIDERS: ATTEND Family Medicine
DX: E11.621 Type 2 diabetes mellitus with foot ulcer (principal); L97.412 Non-pressure chronic ulcer of right heel and midfoot with fat layer exposed; L97.422 Non-pressure chronic ulcer of left heel and midfoot with fat layer exposed; L97.522 Non-pressure chronic ulcer of other part of left foot with fat layer exposed; E11.22 Type 2 diabetes mellitus with diabetic chronic kidney disease; I13.0 Hypertensive heart and chronic kidney disease with heart failure and stage 1 through stage 4 chronic kidney disease, or unspecified chronic kidney disease; N18.4 Chronic kidney disease, stage 4 (severe); I50.43 Acute on chronic combined systolic (congestive) and diastolic (congestive) heart failure; E78.00 Pure hypercholesterolemia, unspecified; I25.10 Atherosclerotic heart disease of native coronary artery without angina pectoris; Z79.82 Long term (current) use of aspirin; Z79.4 Long term (current) use of insulin; Z89.421 Acquired absence of other right toe(s); Z79.899 Other long term (current) drug therapy; Z86.73 Personal history of transient ischemic attack (TIA), and cerebral infarction without residual deficits
CPT/HCPCS: G0463; A4450

== ENCOUNTER → 2025-01-13 | Outpatient (CLI) | payer MEDICARE | END | disposition home or self-care (01) | LOC: WHH 10:04 | PROVIDERS: ATTEND Family Medicine | DX: E11.621 Type 2 diabetes mellitus with foot ulcer (principal); L97.412 Non-pressure chronic ulcer of right heel and midfoot with fat layer exposed; L97.422 Non-pressure chronic ulcer of left heel and midfoot with fat layer exposed; L97.522 Non-pressure chronic ulcer of other part of left foot with fat layer exposed; E11.22 Type 2 diabetes mellitus with diabetic chronic kidney disease; I13.0 Hypertensive heart and chronic kidney disease with heart failure and stage 1 through stage 4 chronic kidney disease, or unspecified chronic kidney disease; N18.4 Chronic kidney disease, stage 4 (severe); I50.43 Acute on chronic combined systolic (congestive) and diastolic (congestive) heart failure; E78.00 Pure hypercholesterolemia, unspecified; I25.10 Atherosclerotic heart disease of native coronary artery without angina pectoris; Z79.82 Long term (current) use of aspirin; Z79.4 Long term (current) use of insulin; Z89.421 Acquired absence of other right toe(s); Z79.899 Other long term (current) drug therapy; Z86.73 Personal history of transient ischemic attack (TIA), and cerebral infarction without residual deficits | CPT/HCPCS: 11042; 11045 ==

== ENCOUNTER → 2025-02-03 | Outpatient (CLI) | payer MEDICARE | END | disposition home or self-care (01) | LOC: WHH 10:08 | PROVIDERS: ATTEND Family Medicine | DX: E11.621 Type 2 diabetes mellitus with foot ulcer (principal); L97.412 Non-pressure chronic ulcer of right heel and midfoot with fat layer exposed; L97.422 Non-pressure chronic ulcer of left heel and midfoot with fat layer exposed; L97.521 Non-pressure chronic ulcer of other part of left foot limited to breakdown of skin; E11.22 Type 2 diabetes mellitus with diabetic chronic kidney disease; I13.0 Hypertensive heart and chronic kidney disease with heart failure and stage 1 through stage 4 chronic kidney disease, or unspecified chronic kidney disease; N18.4 Chronic kidney disease, stage 4 (severe); I50.43 Acute on chronic combined systolic (congestive) and diastolic (congestive) heart failure; E78.00 Pure hypercholesterolemia, unspecified; I25.10 Atherosclerotic heart disease of native coronary artery without angina pectoris; Z79.82 Long term (current) use of aspirin; Z79.4 Long term (current) use of insulin; Z89.421 Acquired absence of other right toe(s); Z79.899 Other long term (current) drug therapy; Z86.73 Personal history of transient ischemic attack (TIA), and cerebral infarction without residual deficits | CPT/HCPCS: G0463; A6209; A4450 ==

== ENCOUNTER → 2025-02-10 | Outpatient (CLI) | payer MEDICARE | END | disposition home or self-care (01) | LOC: WHH 10:09 | PROVIDERS: ATTEND Family Medicine | DX: E11.621 Type 2 diabetes mellitus with foot ulcer (principal); L97.412 Non-pressure chronic ulcer of right heel and midfoot with fat layer exposed; L97.422 Non-pressure chronic ulcer of left heel and midfoot with fat layer exposed; L97.522 Non-pressure chronic ulcer of other part of left foot with fat layer exposed; E11.22 Type 2 diabetes mellitus with diabetic chronic kidney disease; I13.0 Hypertensive heart and chronic kidney disease with heart failure and stage 1 through stage 4 chronic kidney disease, or unspecified chronic kidney disease; N18.4 Chronic kidney disease, stage 4 (severe); I50.43 Acute on chronic combined systolic (congestive) and diastolic (congestive) heart failure; E78.00 Pure hypercholesterolemia, unspecified; I25.10 Atherosclerotic heart disease of native coronary artery without angina pectoris; Z79.82 Long term (current) use of aspirin; Z79.4 Long term (current) use of insulin; Z89.421 Acquired absence of other right toe(s); Z79.899 Other long term (current) drug therapy; Z86.73 Personal history of transient ischemic attack (TIA), and cerebral infarction without residual deficits | CPT/HCPCS: 11042; A6209 ==

== ENCOUNTER → 2025-02-24 | Outpatient (CLI) | payer MEDICARE | END | disposition home or self-care (01) | LOC: WHH 10:03 | PROVIDERS: ATTEND Family Medicine | DX: E11.621 Type 2 diabetes mellitus with foot ulcer (principal); L97.412 Non-pressure chronic ulcer of right heel and midfoot with fat layer exposed; L97.422 Non-pressure chronic ulcer of left heel and midfoot with fat layer exposed; L97.521 Non-pressure chronic ulcer of other part of left foot limited to breakdown of skin; I13.0 Hypertensive heart and chronic kidney disease with heart failure and stage 1 through stage 4 chronic kidney disease, or unspecified chronic kidney disease; N18.4 Chronic kidney disease, stage 4 (severe); I50.43 Acute on chronic combined systolic (congestive) and diastolic (congestive) heart failure; E78.00 Pure hypercholesterolemia, unspecified; I25.10 Atherosclerotic heart disease of native coronary artery without angina pectoris; Z79.82 Long term (current) use of aspirin; Z79.4 Long term (current) use of insulin; Z89.421 Acquired absence of other right toe(s); Z79.899 Other long term (current) drug therapy; Z86.73 Personal history of transient ischemic attack (TIA), and cerebral infarction without residual deficits | CPT/HCPCS: G0463; A6209 ==

== ENCOUNTER → 2025-03-03 | Outpatient (CLI) | payer MEDICARE ==
[~2025-03-03] MED LIST changes: +ASPI-1443 PO; +ATOR10 PO; +CLOP75TA32 PO; +FOLI1TAB85 PO; +INSU100I15 SQ; +ISOS30TA92 PO; +METO-408 PO; +MIDO2.5T4 PO; +PANT40TA54 PO; +PSYL575P22 PO; +SUCR1TAB2 PO
== END | disposition home or self-care (01) ==
LOC: WHH 10:02
PROVIDERS: ATTEND Family Medicine
DX: E11.621 Type 2 diabetes mellitus with foot ulcer (principal); L97.412 Non-pressure chronic ulcer of right heel and midfoot with fat layer exposed; L97.422 Non-pressure chronic ulcer of left heel and midfoot with fat layer exposed; L97.521 Non-pressure chronic ulcer of other part of left foot limited to breakdown of skin; I13.0 Hypertensive heart and chronic kidney disease with heart failure and stage 1 through stage 4 chronic kidney disease, or unspecified chronic kidney disease; N18.4 Chronic kidney disease, stage 4 (severe); I50.43 Acute on chronic combined systolic (congestive) and diastolic (congestive) heart failure; E78.00 Pure hypercholesterolemia, unspecified; I25.10 Atherosclerotic heart disease of native coronary artery without angina pectoris; Z79.82 Long term (current) use of aspirin; Z79.4 Long term (current) use of insulin; Z89.421 Acquired absence of other right toe(s); Z79.899 Other long term (current) drug therapy; Z86.73 Personal history of transient ischemic attack (TIA), and cerebral infarction without residual deficits
CPT/HCPCS: 15275; 15276; Q4121; A6196; A6197